=== PATIENT | female | born 1950 | race Caucasian/White ===

== ENCOUNTER → 2019-05-04 10:45 | Outpatient (CLI) | payer MEDICARE, SELFPAY ==
[2019-05-04 11:57] LABS: Absolute Lymphocyte Count 2.45 X10^3/ul (0.83-4.51); Absolute Neutrophil Count 2.8 X10^3/uL (2.0-7.7); Basophil# 0.02 X10^3/uL; Basophil% 0.3 % (0-1); Eosinophil# 0.58 X10^3/uL; Hematocrit 42.1 % (37-47); Hemoglobin 14.1 g/dl (12.0-15.0); Lymphocyte # 2.45 X10^3/ul (4.0); Lymphocyte % 38.2 % (19-41); Mean Corp Hgb Conc 33.5 g/gl (32-36); Mean Corpuscular Hgb 30.5 pg (27.0-32.0); Mean Corpuscular Volume 90.9 fL (81-99); Mean Platelet Vol. 10.8 fl (6.2-12.0); Monocyte# 0.56 X10^3/uL; Monocyte% 8.7 % (0-10); Neutrophil # 2.79 X10^3/uL (2.7-7.7); Neutrophil % 43.6 % (47-70); Platelet Count 266 K/mm3 (150-450); RBC Distribution Width CV 13.8 % (11.6-14.6); RBC Distribution Width SD 45.5 fl (35.1-43.9); Red Blood Count 4.63 M/mm3 (4.2-5.4); White Blood Count 6.4 K/mm3 (4.4-11.0)
[2019-05-04 12:04] LABS: POSITIVE COUNT NO; POSITIVE DIFFERENTIAL NO; POSITIVE MORPHOLOGY NO
[2019-05-04 12:18] LABS: Vitamin D,25 Hydroxy 16.6 ng/mL (29.95-100.01)
[2019-05-04 12:22] LABS: ALB/GLOB Ratio 0.8 RATIO (0.9-2.4); AST(SGOT) 14 U/L (15-37); Alanine Aminotransfer ALT/SGPT 21 U/L (13-56); Albumin, Serum 3.7 g/dL (3.2-5.0); Alkaline Phosphatase 66 U/L (45-117); Anion Gap 7 (5-15); BUN 10 mg/dL (7-18); BUN/Creat Ratio 14.1 RATIO (10-20); Chloride 107 mmol/L (98-107); Creatinine, Serum 0.71 mg/dL (0.55-1.02); EST Glomerular Filtration Rate 88 mL/min (>60); Est Glom Filt Rate - Afr Amer 106 mL/min (>60); Globulin 4.4 g/dL (2.2-4.2); Glucose 96 mg/dL (74-106); Potassium 3.9 mmol/L (3.5-5.1); Protein, Total 8.1 g/dL (6.4-8.2); Sodium Level 141 mmol/L (136-145); Thyroid Stim Hormone (TSH) 0.07 uIU/mL (0.358-3.74)
== END ==
PROVIDERS: Visit Provider Family Medicine Geriatric Medicine
DX: Z00.00 Encounter for general adult medical examination without abnormal findings (principal); E55.9 Vitamin D deficiency, unspecified; I10 Essential (primary) hypertension
CPT/HCPCS: 36415; 80053; 82306; 84443; 85025

== ENCOUNTER → 2019-06-03 11:00 | Outpatient (CLI) | payer MEDICARE, SELFPAY ==
[2019-06-03 13:27] LABS: Thyroid Stim Hormone (TSH) 0.49 uIU/mL (0.358-3.74)
== END ==
PROVIDERS: Visit Provider Family Medicine Geriatric Medicine
DX: E03.9 Hypothyroidism, unspecified (principal)
CPT/HCPCS: 36415; 84443

== ENCOUNTER → 2019-11-03 11:25 | Outpatient (CLI) | payer MEDICARE, SELFPAY ==
[2019-11-03 12:34] LABS: Absolute Lymphocyte Count 3.32 X10^3/uL (0.83-4.51); Absolute Neutrophil Count 2.7 X10^3/uL (2.0-7.7); Basophil# 0.05 X10^3/uL; Basophil% 0.7 % (0-1); Eosinophil# 0.26 X10^3/uL; Eosinophils% 3.8 % (0-5); Hematocrit 44.8 % (37-47); Hemoglobin 14.7 g/dL (12.0-15.0); Lymphocyte # 3.32 X10^3/ul (4.0); Lymphocyte % 48.9 % (19-41); Mean Corp Hgb Conc 32.8 g/dL (32-36); Mean Corpuscular Hgb 31.2 pg (27.0-32.0); Mean Corpuscular Volume 95.1 fL (81-99); Mean Platelet Vol. 11.1 fl (6.2-12.0); Monocyte# 0.48 X10^3/uL; Monocyte% 7.1 % (0-10); NRBC Flagged by Analyzer 0 % (0-5); Neutrophil # 2.67 X10^3/uL (2.7-7.7); Neutrophil % 39.4 % (47-70); Platelet Count 237 K/mm3 (150-450); RBC Distribution Width CV 12.5 % (11.6-14.6); RBC Distribution Width SD 44.5 fl (35.1-43.9); Red Blood Count 4.71 M/mm3 (4.2-5.4); White Blood Count 6.8 K/mm3 (4.4-11.0)
[2019-11-03 12:50] LABS: Vitamin D,25 Hydroxy 19.3 ng/mL (29.95-100.01)
[2019-11-03 12:53] LABS: AST(SGOT) 18 U/L (15-37); Alanine Aminotransfer ALT/SGPT 24 U/L (13-56); Albumin, Serum 3.8 g/dL (3.2-5.0); Alkaline Phosphatase 64 U/L (45-117); Anion Gap 5 (5-15); BUN 11 mg/dL (7-18); BUN/Creat Ratio 15.3 RATIO (10-20); Calcium,Total 8.7 mg/dL (8.5-10.1); Chloride 108 mmol/L (98-107); Creatinine, Serum 0.72 mg/dL (0.55-1.02); EST Glomerular Filtration Rate 86 mL/min (>60); Est Glom Filt Rate - Afr Amer 104 mL/min (>60); Glucose 99 mg/dL (74-106); Potassium 4.1 mmol/L (3.5-5.1); Protein, Total 7.8 g/dL (6.4-8.2); Sodium Level 137 mmol/L (136-145); Thyroid Stim Hormone (TSH) 1.93 uIU/mL (0.358-3.74)
== END ==
PROVIDERS: Visit Provider Family Medicine Geriatric Medicine
DX: E55.9 Vitamin D deficiency, unspecified (principal); R53.83 Other fatigue
CPT/HCPCS: 36415; 80053; 82306; 84443; 85025

== ENCOUNTER → 2020-05-22 11:13 | Outpatient (CLI) | payer MEDICARE, SELFPAY ==
[2020-05-22 12:33] LABS: Absolute Lymphocyte Count 3.11 X10^3/uL (0.83-4.51); Absolute Neutrophil Count 2.7 X10^3/uL (2.0-7.7); Basophil# 0.04 X10^3/uL; Basophil% 0.6 % (0-1); Eosinophil# 0.21 X10^3/uL; Eosinophils% 3.2 % (0-5); Hematocrit 40.3 % (37-47); Hemoglobin 13.3 g/dL (12.0-15.0); Lymphocyte # 3.11 X10^3/ul (4.0); Lymphocyte % 47.8 % (19-41); Mean Corpuscular Hgb 32.1 pg (27.0-32.0); Mean Corpuscular Volume 97.3 fL (81-99); Mean Platelet Vol. 10.7 fl (6.2-12.0); Monocyte# 0.44 X10^3/uL; Monocyte% 6.8 % (0-10); NRBC Flagged by Analyzer 0 % (0-5); Neutrophil # 2.68 X10^3/uL (2.7-7.7); Neutrophil % 41.3 % (47-70); Platelet Count 235 K/mm3 (150-450); RBC Distribution Width CV 12.5 % (11.6-14.6); RBC Distribution Width SD 44.8 fl (35.1-43.9); Red Blood Count 4.14 M/mm3 (4.2-5.4); White Blood Count 6.5 K/mm3 (4.4-11.0)
[2020-05-22 13:00] LABS: ALB/GLOB Ratio 0.9 RATIO (0.9-2.4); AST(SGOT) 15 U/L (15-37); Alanine Aminotransfer ALT/SGPT 27 U/L (13-56); Albumin, Serum 3.7 g/dL (3.2-5.0); Alkaline Phosphatase 58 U/L (45-117); Anion Gap 7 (5-15); BUN 11 mg/dL (7-18); BUN/Creat Ratio 17.3 RATIO (10-20); Calcium,Total 9.1 mg/dL (8.5-10.1); Chloride 105 mmol/L (98-107); Creatinine, Serum 0.64 mg/dL (0.55-1.02); EST Glomerular Filtration Rate 99 mL/min (>60); Est Glom Filt Rate - Afr Amer 120 mL/min (>60); Globulin 3.9 g/dL (2.2-4.2); Glucose 102 mg/dL (74-106); Potassium 4.3 mmol/L (3.5-5.1); Protein, Total 7.6 g/dL (6.4-8.2); Sodium Level 139 mmol/L (136-145); T3 Uptake 33 % (30-39); T4 Free Direct 1.03 ng/dL (0.76-1.46); Thyroid Stim Hormone (TSH) 2.24 uIU/mL (0.358-3.74)
== END ==
PROVIDERS: Referring Provider Family Medicine Geriatric Medicine; Visit Provider Family Medicine Geriatric Medicine
DX: E03.9 Hypothyroidism, unspecified (principal); E55.9 Vitamin D deficiency, unspecified; R53.83 Other fatigue
CPT/HCPCS: 36415; 80053; 82306; 84439; 84443; 84479; 85025

== ENCOUNTER → 2020-06-04 13:14 | Outpatient (CLI) | payer MEDICARE, SELFPAY ==
--- NOTE | 2020-06-04 13:19 | CT_ITS ---
STUDY: LOW DOSE CT LUNG CANCER SCREENING REASON FOR EXAM: Female, 69 years old. 37 pack-year history clearance for her. RADIATION DOSAGE (If Supplied By Facility): CTDIvol = ( 3.02 ) mGy, DLP = ( 102.69 ) mGycm TECHNIQUE: No contrast was administered. Low dose technique was utilized (average mAS-38 and kVp 120). 1.25 mm axial source images with a slice interval of 1.25-mm were reconstructed in lung windows. 2.5 mm axial source images with a slice interval of 2.5-mm were reconstructed in lung windows. 5.0 mm axial source images with a slice interval of 5.0-mm were reconstructed in soft tissue windows. Nodule measured using lung windows on PACS and/or independent workstation with automated measurement of minimum and maximum diameter. Nodule measurement reported as average diameter rounded to the nearest whole number. Growth is defined as an increase ins size of greater than 1.5 mm. COMPARISON: None. NODULES: Total lung nodules (excluding granulomas): 0 Emphysema: None there is evidence of an azygous lobe in the right lung apex. Endobronchial lesion: None Aorta: Normal Coronary arteries: Minimal coronary artery calcifications. Heart: Normal in size. Pulmonary artery: Normal Mediastinal nodes: There are calcified precarinal and right hilar lymph nodes. Other chest and abdominal findings: There are degenerative changes of the thoracic spine. CT/Low Dose CT Lung Screening IMPRESSION: Lung-RADS category 1 - Continue annual screening with LDCT in 12 months. IMPORTANT NOTES FOR USE: ACR Lung-RADS Version 1.0 Assessment Categories Release Date: March 27, 2014 Category: Coded 0-4 bases on nodule(s) with highest degree of suspicion. Negative screen is defined as categories 1 and 2; a positive screen is defined as categories 3 and 4. Category 3 and 4A nodules that are unchanged on interval CT should be coded as category 2, and individuals returned to screening in 12 months. Category 4X: Category 3 or 4 nodules with additional imaging findings that increase the suspicion of lung cancer, such as spiculation, GGN that doubles in size in 1 year, enlarged lymph notes, etc. Category Modifiers: S (significant finding unrelated to lung cancer) and C (prior history of treated lung cancer) may be added to the 0-4 Lung-RADS Electronically Signed: Bari Do DO at 21:47 EDT Tel [phone], Service support ,
== END ==
PROVIDERS: PCP Family Medicine Geriatric Medicine; Referring Provider Family Medicine Geriatric Medicine; Visit Provider Family Medicine Geriatric Medicine
DX: T65.222S Toxic effect of tobacco cigarettes, intentional self-harm, sequela (principal); Z12.2 Encounter for screening for malignant neoplasm of respiratory organs; Z87.891 Personal history of nicotine dependence
CPT/HCPCS: G0297

== ENCOUNTER → 2021-06-05 15:03 | Outpatient (CLI) | payer MEDICARE, SELFPAY ==
[2021-06-05 17:17] LABS: Absolute Lymphocyte Count 2.83 X10^3/uL (0.83-4.51); Absolute Neutrophil Count 2.5 X10^3/uL (2.0-7.7); Basophil# 0.05 X10^3/uL; Basophil% 0.8 % (0-1); Eosinophil# 0.29 X10^3/uL; Eosinophils% 4.7 % (0-5); Hematocrit 41.3 % (37-47); Hemoglobin 13.9 g/dL (12.0-15.0); Lymphocyte # 2.83 X10^3/ul (0.83-4.51); Lymphocyte % 45.9 % (19-41); Mean Corp Hgb Conc 33.7 g/dL (32-36); Mean Corpuscular Volume 95.2 fL (81-99); Monocyte# 0.48 X10^3/uL; Monocyte% 7.8 % (0-10); NRBC Flagged by Analyzer 0 % (0-5); Neutrophil % 40.5 % (47-70); Platelet Count 226 K/mm3 (150-450); RBC Distribution Width CV 12.4 % (11.6-14.6); RBC Distribution Width SD 43.2 fl (35.1-43.9); Red Blood Count 4.34 M/mm3 (4.2-5.4); White Blood Count 6.2 K/mm3 (4.4-11.0)
[2021-06-05 17:34] LABS: Vitamin D,25 Hydroxy 23.5 ng/mL
[2021-06-05 17:39] LABS: AST(SGOT) 21 U/L (15-37); Alanine Aminotransfer ALT/SGPT 26 U/L (13-56); Albumin, Serum 3.9 g/dL (3.2-5.0); Alkaline Phosphatase 62 U/L (45-117); Anion Gap 7 (5-15); BUN 13 mg/dL (7-18); BUN/Creat Ratio 17.2 RATIO (10-20); Calcium,Total 8.7 mg/dL (8.5-10.1); Chloride 107 mmol/L (98-107); Creatinine, Serum 0.76 mg/dL (0.55-1.02); EST Glomerular Filtration Rate 81 mL/min (>60); Est Glom Filt Rate - Afr Amer 97 mL/min (>60); Globulin 3.9 g/dL (2.2-4.2); Glucose 95 mg/dL (74-106); Protein, Total 7.8 g/dL (6.4-8.2); Sodium Level 138 mmol/L (136-145); Thyroid Stim Hormone (TSH) 4.59 uIU/mL (0.358-3.74)
== END ==
PROVIDERS: PCP Family Medicine Geriatric Medicine; Visit Provider Family Medicine Geriatric Medicine
DX: E55.9 Vitamin D deficiency, unspecified (principal); R53.83 Other fatigue
CPT/HCPCS: 36415; 80053; 82306; 84443; 85025

== ENCOUNTER 2021-12-09 09:35 | Outpatient (CLI) | payer MEDICARE, SELFPAY ==
[2021-12-09 11:41] LABS: Absolute Lymphocyte Count 3.06 X10^3/uL (0.83-4.51); Absolute Neutrophil Count 2.3 X10^3/uL (2.0-7.7); Basophil# 0.05 X10^3/uL; Basophil% 0.8 % (0-1); Eosinophil# 0.27 X10^3/uL; Eosinophils% 4.4 % (0-5); Hematocrit 44.2 % (37-47); Hemoglobin 15.2 g/dL (12.0-15.0); Lymphocyte # 3.06 X10^3/ul (0.83-4.51); Lymphocyte % 49.7 % (19-41); Mean Corp Hgb Conc 34.4 g/dL (32-36); Mean Corpuscular Hgb 32.4 pg (27.0-32.0); Mean Corpuscular Volume 94.2 fL (81-99); Mean Platelet Vol. 10.7 fl (6.2-12.0); Monocyte# 0.47 X10^3/uL; Monocyte% 7.6 % (0-10); NRBC Flagged by Analyzer 0 % (0-5); Neutrophil # 2.29 X10^3/uL (2.7-7.7); Neutrophil % 37.2 % (47-70); Platelet Count 254 K/mm3 (150-450); RBC Distribution Width CV 12.4 % (11.6-14.6); RBC Distribution Width SD 42.9 fl (35.1-43.9); Red Blood Count 4.69 M/mm3 (4.2-5.4); White Blood Count 6.2 K/mm3 (4.4-11.0)
[2021-12-09 12:13] LABS: ALB/GLOB Ratio 0.9 RATIO (0.9-2.4); AST(SGOT) 15 U/L (15-37); Alanine Aminotransfer ALT/SGPT 20 U/L (13-56); Albumin, Serum 3.8 g/dL (3.2-5.0); Alkaline Phosphatase 54 U/L (45-117); Anion Gap 5 (5-15); BUN 10 mg/dL (7-18); Calcium,Total 9.3 mg/dL (8.5-10.1); Chloride 106 mmol/L (98-107); Creatinine, Serum 0.84 mg/dL (0.55-1.02); EST Glomerular Filtration Rate 72 mL/min (>60); Est Glom Filt Rate - Afr Amer 87 mL/min (>60); Globulin 4.3 g/dL (2.2-4.2); Glucose 104 mg/dL (74-106); Potassium 3.8 mmol/L (3.5-5.1); Protein, Total 8.1 g/dL (6.4-8.2); Sodium Level 138 mmol/L (136-145); Thyroid Stim Hormone (TSH) 3.17 uIU/mL (0.358-3.74)
== END 2021-12-09 23:59 | disposition short-term general hospital (02) ==
LOC: POLAB3 09:36
PROVIDERS: PCP Family Medicine Geriatric Medicine; Visit Provider Family Medicine Geriatric Medicine
DX: E55.9 Vitamin D deficiency, unspecified (principal); R53.83 Other fatigue
CPT/HCPCS: 36415; 80053; 82306; 84443; 85025

== ENCOUNTER → 2022-05-01 | Outpatient (CLI) | payer MEDICARE, SELFPAY ==
--- NOTE | 2022-05-01 15:30 | RAD_ITS ---
STUDY: X-RAY - LEFT KNEE REASON FOR EXAM: Female, 71 years old. LEFT KNEE PAINS/P SQUATTING WHILE GARDENING ON THURSDAY, WHEN PATIENT STOOD UP FELT PAIN. LROM SINCE TECHNIQUE: 4 view(s) of the knee. COMPARISON: None. FINDINGS: Normal visualized distal femur. Normal visualized proximal tibia and fibula. Normal proximal tibiofibular articulation. Normal medial femorotibial compartment. Normal lateral femorotibial compartment. Normal patellofemoral articulation. There is no demonstrated joint effusion. The soft tissue structures are unremarkable. RAD/Knee 4 or More Views IMPRESSION: Normal x-ray examination of the knee. Electronically Signed: Marvin Combs MD (Brooks) at 17:44 EDT ,
== END | disposition home or self-care (01) ==
LOC: RAD 15:23
PROVIDERS: PCP Family Medicine Geriatric Medicine; Referring Provider Family Medicine Geriatric Medicine; Visit Provider Family Medicine Geriatric Medicine
DX: M25.562 Pain in left knee (principal)
CPT/HCPCS: 73564

== ENCOUNTER → 2022-06-09 | Outpatient (CLI) | payer MEDICARE, SELFPAY ==
[2022-06-09 12:26] LABS: Absolute Lymphocyte Count 2.75 X10^3/uL (0.83-4.51); Absolute Neutrophil Count 2.8 X10^3/uL (2.0-7.7); Basophil# 0.06 X10^3/uL; Eosinophil# 0.16 X10^3/uL; Eosinophils% 2.5 % (0-5); Hematocrit 42.8 % (37-47); Hemoglobin 14.6 g/dL (12.0-15.0); Lymphocyte # 2.75 X10^3/ul (0.83-4.51); Lymphocyte % 43.7 % (19-41); Mean Corp Hgb Conc 34.1 g/dL (32-36); Mean Corpuscular Volume 96.6 fL (81-99); Mean Platelet Vol. 11.1 fl (6.2-12.0); Monocyte# 0.53 X10^3/uL; Monocyte% 8.4 % (0-10); NRBC Flagged by Analyzer 0 % (0-5); Neutrophil # 2.79 X10^3/uL (2.7-7.7); Neutrophil % 44.2 % (47-70); Platelet Count 268 K/mm3 (150-450); RBC Distribution Width CV 12.8 % (11.6-14.6); RBC Distribution Width SD 45.9 fl (35.1-43.9); Red Blood Count 4.43 M/mm3 (4.2-5.4); White Blood Count 6.3 K/mm3 (4.4-11.0)
[2022-06-09 13:02] LABS: AST(SGOT) 16 U/L (15-37); Alanine Aminotransfer ALT/SGPT 25 U/L (13-56); Albumin, Serum 3.8 g/dL (3.2-5.0); Alkaline Phosphatase 56 U/L (45-117); Anion Gap 9 (5-15); BUN 13 mg/dL (7-18); BUN/Creat Ratio 19.2 RATIO (10-20); Calcium,Total 9.3 mg/dL (8.5-10.1); Chloride 105 mmol/L (98-107); Creatinine, Serum 0.68 mg/dL (0.55-1.02); EST Glomerular Filtration Rate 91 mL/min (>60); Est Glom Filt Rate - Afr Amer 111 mL/min (>60); Globulin 3.8 g/dL (2.2-4.2); Glucose 98 mg/dL (74-106); Potassium 3.9 mmol/L (3.5-5.1); Protein, Total 7.6 g/dL (6.4-8.2); Sodium Level 139 mmol/L (136-145); Thyroid Stim Hormone (TSH) 0.44 uIU/mL (0.358-3.74)
[2022-06-09 13:22] LABS: Vitamin D,25 Hydroxy 32.9 ng/mL
== END | disposition home or self-care (01) ==
LOC: POLAB3 10:49
PROVIDERS: PCP Family Medicine Geriatric Medicine; Visit Provider Family Medicine Geriatric Medicine
DX: E55.9 Vitamin D deficiency, unspecified (principal); R53.83 Other fatigue
CPT/HCPCS: 36415; 80053; 82306; 84443; 85025

== ENCOUNTER 2022-09-29 09:39 | Emergency (ER) | payer MEDICARE, SELFPAY ==
[2022-09-29 09:39] VITALS: BP 162/78; PULSE 66; RESP 16; TEMP 36.3; O2SAT 98; BMI 30.4
--- NOTE | 2022-09-29 10:14 | ED.VIS.LOWEX ---
HPI History of Present Illness Chief Complaint: Lower Extremity Injury Informant: patient Onset/Context/Timing Onset: Days (3) Context: Sudden Onset Timing: Continuous Quality of Pain: Aching Location: Medial right knee Current Severity: Moderate Maximum Severity: Severe Worsened by: Bending, walking Relieved by: Rest, remaining still Associated Symptoms Associated Symptoms: Negative for Parasthesia, Weakness or Loss of Funtion Narrative Narrative: Patient states she was having intercourse with her significant other and when she got off the bed and put her right foot down, she states her knees seem to either twist, give out, or both. She has been having medial knee joint pain ever since. She states she has chronic pain in her left knee, same area, was diagnosed with a meniscus tear, orthopedics has scheduled an MRI for her for that 1. 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 She denies any numbness or tingling distally. [facility] Medical History History of back problems Tear of medial meniscus of left knee Thyroid cancer Thyroid disease Home Medications atorvastatin 40 mg tablet (Lipitor) 40 mg PO DAILY 06/18/22 [History Last Taken Unknown] levothyroxine 125 mcg tablet 125 mcg PO DAILY 06/18/22 [History Last Taken Unknown] venlafaxine 37.5 mg capsule,extended release 24 hr (Effexor XR) 37.5 mg PO DAILY 06/18/22 [History Last Taken Unknown] ketorolac 10 mg tablet 10 mg PO Q8H PRN pain 4 days #12 tabs 09/29/22 [Rx Last Taken Unknown] Allergy/AdvReac Type Severity Reaction Status Date / Time Penicillins Allergy Rash Verified 06/26/22 14:17 keflex Allergy Yeast Uncoded 06/26/22 14:17 infection if on retirement Family History Father Cancer bladder Grandfather Cancer prostate Heart disease CVA (cerebral vascular accident) Grandmother Breast cancer Kidney disease Mother Colon cancer Surgical History History of back surgery History of cholecystectomy History of total thyroidectomy with right radical neck dissection Hx of tonsillectomy Social History Smoking Status: Current every day smoker tobacco type: cigarettes alcohol intake: current alcohol intake frequency: holidays/special occasions only details: seldom, social substance use type: does not use ROS ROS ED Constitutional Constitutional ED: Denies chills or fever(s) Musculoskeletal Musculoskeletal: Reports extremity pain; Denies neck pain Integumentary Denies Abrasions, rash or wounds Neurologic Neurologic: Denies paresthesias or weakness EXAM Physical Exam Const Vital Signs: 09/29/22 09:39 Temperature 97.3 F L Temperature Source Temporal Pulse Rate 66 Respiratory Rate 16 Blood Pressure 162/78 H Blood Pressure Mean 106 Pulse Ox 98 Oxygen Delivery Method Room Air Positive well nourished and well developed General Appearance ED: well developed and NAD Neck full ROM and supple Back/Spine normal ROM and normal to inspection Extremity Extremity Narrative: Tender right medial knee joint line, no effusion. No other bony tenderness. Full extension intact, able to bend to about 60 degrees but not fully due to pain. All ligaments stable with short endpoints, no laxity with stressing no significant discomfort with stressing them. Neuro oriented x3, no focal motor deficits and no sensory deficits noted Sensorium / Orientation: alert Psych mental status grossly normal and thought process normal Skin no wounds Rashes: no rashes MDM MDM MDM Narrative Medical decision making narrative: 4 view right knee x-ray series negative on my interpretation. Radiology in agreement. Meniscus injury in the differential here. Patient is concerned because of her chronic knee issues on the left and she is scheduled for an MRI in 1 week, and she really needs to work. I offered her a knee immobilizer for the right lower extremity which she accepts, and we discussed the fact that she needs to come out of it every day especially when she is resting so she avoids stiffening of the joint and muscles and venous thromboembolism risk. We also discussed using caution given that she is at an increased risk of falling. She wants this rather than an Jose Luis wrap, I am fine with that as long as she is cautious. Follow-up with orthopedics advised. So that she can work, she is requesting a prescription for Toradol which I will give her. Radiography Diagnostic Testing: Clinical Impression(s) from Imaging Studies Knee X-Ray 09/29/22 10:25 IMPRESSION: Normal x-ray examination of the knee. Electronically Signed: Taz Parra MD at 10:51 EDT , Discharge Plan Triage Chief Complaint: Lower Extremity Injury ED Provider: Gentry Kelley Dx/Rx/DC Orders Clinical Impression: Injury of right knee Instructions: Reducing Knee Pain and Swelling, ED Knee Immobilizer Prescriptions: New ketorolac 10 mg tablet 10 mg PO Q8H PRN (Reason: pain) 4 Days Qty: 12 0RF No Action levothyroxine 125 mcg tablet 125 mcg PO DAILY venlafaxine [Effexor XR] 37.5 mg capsule,extended release 24hr 37.5 mg PO DAILY atorvastatin [Lipitor] 40 mg tablet 40 mg PO DAILY Primary Care Provider: Shawn Andrade Chi Referrals: Jan Rosen MD [Med Staff - Active Staff] - As soon as possible Shawn Andrade Chi, MD [Primary Care Provider] - Disposition Disposition: Home, Self Care
--- NOTE | 2022-09-29 10:25 | RAD_ITS ---
STUDY: X-RAY - RIGHT KNEE REASON FOR EXAM: Female, 72 years old. Injury TECHNIQUE: 4 view(s) of the knee. COMPARISON: None. FINDINGS: Normal visualized distal femur. Normal visualized proximal tibia and fibula. Normal proximal tibiofibular articulation. Normal medial femorotibial compartment. Normal lateral femorotibial compartment. Normal patellofemoral articulation. The soft tissue structures are unremarkable. RAD/Knee 4 or More Views IMPRESSION: Normal x-ray examination of the knee. Electronically Signed: Taz Parra MD at 10:51 EDT ,
[2022-09-29] MEDS: traMADol 50 MG Tablet PO (11:36)
[2022-09-29] MEDS: Naproxen 250 MG Tablet 500 MG PO (11:36)
== END 2022-09-29 11:47 | disposition home or self-care (01) ==
PROVIDERS: Emergency Provider Emergency Medicine; PCP Family Medicine Geriatric Medicine; Visit Provider Emergency Medicine
DX: S90.912A Unspecified superficial injury of left ankle, initial encounter (principal); X58.XXXA Exposure to other specified factors, initial encounter; F17.210 Nicotine dependence, cigarettes, uncomplicated
CPT/HCPCS: 73564; 99283

== ENCOUNTER → 2022-10-06 | Outpatient (CLI) | payer MEDICARE, SELFPAY ==
--- NOTE | 2022-10-06 16:40 | MRI_ITS ---
STUDY: MR Knee W/O Contrast 10/06/2022 8:29 PM REASON FOR EXAM: Female, 72 years old. rule out MM tear TECHNIQUE: Standardized fat and water weighted pulse sequences were obtained in all 3 orthogonal planes. COMPARISON: xr 10.31.22. FINDINGS: There is a tear of the posterior horn of the medial meniscus with inferior surfacing. Normal hyaline cartilage of the medial femorotibial compartment. There is reactive marrow edema of the medial tibial plateau. Normal medial collateral ligamentous complex (MCL). Normal distal semimembranosus, gracilis and semitendinosus tendons. Normal lateral meniscus. Normal hyaline cartilage of the lateral femorotibial compartment. Normal lateral femoral condyle and tibial plateau. Normal proximal tibiofibular articulation. Normal lateral collateral (fibular) ligament. Normal popliteus tendon. Normal biceps femoris tendon. Normal anterior cruciate ligament (ACL). Normal posterior cruciate ligament (PCL). Normal congruent patellofemoral articulation. Normal hyaline cartilage of the patellofemoral compartment. Normal medial and lateral patellar retinaculum. Normal quadriceps tendon. Normal patellar tendon. Normal Hoffa''s fat pad. There is a small volume joint effusion. The soft tissues are unremarkable. The otherwise visualized osseous structures are unremarkable. MRI/Lower Ext Joint Only (Routine) IMPRESSION: Small suprapatellar effusion. There is a tear of the posterior horn of the medial meniscus with inferior surfacing. There is reactive marrow edema of the medial tibial plateau. Electronically Signed: Patel Szymanski MD at 20:44 EST ,
== END | disposition home or self-care (01) ==
LOC: MRI 16:23
PROVIDERS: PCP Family Medicine Geriatric Medicine; Referring Provider Orthopaedic Surgery Sports Medicine; Visit Provider Orthopaedic Surgery Sports Medicine
DX: S83.242A Other tear of medial meniscus, current injury, left knee, initial encounter (principal)
CPT/HCPCS: 73721

== ENCOUNTER → 2022-12-08 | Outpatient (CLI) | payer MEDICARE, SELFPAY ==
[2022-12-08 13:14] LABS: Absolute Lymphocyte Count 3.54 X10^3/uL (0.83-4.51); Basophil# 0.06 X10^3/uL; Basophil% 0.8 % (0-1); Eosinophil# 0.27 X10^3/uL; Eosinophils% 3.6 % (0-5); Hematocrit 40.8 % (37-47); Lymphocyte # 3.54 X10^3/ul (0.83-4.51); Lymphocyte % 47.1 % (19-41); Mean Corp Hgb Conc 34.3 g/dL (32-36); Mean Corpuscular Hgb 33.6 pg (27.0-32.0); Mean Corpuscular Volume 97.8 fL (81-99); Mean Platelet Vol. 10.8 fl (6.2-12.0); Monocyte# 0.66 X10^3/uL; Monocyte% 8.8 % (0-10); NRBC Flagged by Analyzer 0 % (0-5); Neutrophil # 2.97 X10^3/uL (2.7-7.7); Neutrophil % 39.6 % (47-70); Platelet Count 248 K/mm3 (150-450); RBC Distribution Width CV 13.2 % (11.6-14.6); RBC Distribution Width SD 47.8 fl (35.1-43.9); Red Blood Count 4.17 M/mm3 (4.2-5.4); White Blood Count 7.5 K/mm3 (4.4-11.0)
[2022-12-08 13:28] LABS: Vitamin D,25 Hydroxy 24.2 ng/mL
[2022-12-08 13:34] LABS: AST(SGOT) 20 U/L (15-37); Alanine Aminotransfer ALT/SGPT 37 U/L (13-56); Albumin, Serum 3.7 g/dL (3.2-5.0); Alkaline Phosphatase 49 U/L (45-117); Anion Gap 11 (5-15); BUN 18 mg/dL (7-18); BUN/Creat Ratio 23.2 RATIO (10-20); Calcium,Total 8.9 mg/dL (8.5-10.1); Chloride 105 mmol/L (98-107); Creatinine, Serum 0.78 mg/dL (0.55-1.02); EST Glomerular Filtration Rate 78 mL/min (>60); Est Glom Filt Rate - Afr Amer 94 mL/min (>60); Globulin 3.8 g/dL (2.2-4.2); Glucose 91 mg/dL (74-106); Potassium 3.9 mmol/L (3.5-5.1); Protein, Total 7.5 g/dL (6.4-8.2); Sodium Level 140 mmol/L (136-145)
== END | disposition home or self-care (01) ==
LOC: POLAB3 10:41
PROVIDERS: PCP Family Medicine Geriatric Medicine; Visit Provider Family Medicine Geriatric Medicine
DX: E55.9 Vitamin D deficiency, unspecified (principal); R53.83 Other fatigue
CPT/HCPCS: 36415; 80053; 82306; 84443; 85025

== ENCOUNTER → 2023-02-05 | Outpatient (CLI) | payer MEDICARE, SELFPAY ==
[2023-02-05 12:51] LABS: Absolute Lymphocyte Count 3.36 X10^3/uL (0.83-4.51); Absolute Neutrophil Count 2.8 X10^3/uL (2.0-7.7); Basophil# 0.04 X10^3/uL; Basophil% 0.6 % (0-1); Eosinophil# 0.15 X10^3/uL; Eosinophils% 2.1 % (0-5); Hematocrit 42.7 % (37-47); Hemoglobin 14.7 g/dL (12.0-15.0); Lymphocyte # 3.36 X10^3/ul (0.83-4.51); Lymphocyte % 48.1 % (19-41); Mean Corp Hgb Conc 34.4 g/dL (32-36); Mean Corpuscular Hgb 33.6 pg (27.0-32.0); Mean Corpuscular Volume 97.5 fL (81-99); Mean Platelet Vol. 10.7 fl (6.2-12.0); Monocyte# 0.57 X10^3/uL; Monocyte% 8.2 % (0-10); NRBC Flagged by Analyzer 0 % (0-5); Neutrophil # 2.84 X10^3/uL (2.7-7.7); Neutrophil % 40.7 % (47-70); Platelet Count 235 K/mm3 (150-450); RBC Distribution Width CV 11.9 % (11.6-14.6); RBC Distribution Width SD 42.7 fl (35.1-43.9); Red Blood Count 4.38 M/mm3 (4.2-5.4)
[2023-02-05 13:13] LABS: AST(SGOT) 19 U/L (15-37); Alanine Aminotransfer ALT/SGPT 27 U/L (13-56); Albumin, Serum 3.9 g/dL (3.2-5.0); Alkaline Phosphatase 52 U/L (45-117); Anion Gap 4 (5-15); BUN 19 mg/dL (7-18); BUN/Creat Ratio 27.8 RATIO (10-20); Calcium,Total 9.6 mg/dL (8.5-10.1); Chloride 108 mmol/L (98-107); Creatinine, Serum 0.68 mg/dL (0.55-1.02); EST Glomerular Filtration Rate 90 mL/min (>60); Est Glom Filt Rate - Afr Amer 109 mL/min (>60); Glucose 103 mg/dL (74-106); Potassium 4.3 mmol/L (3.5-5.1); Protein, Total 7.9 g/dL (6.4-8.2); Sodium Level 137 mmol/L (136-145); T3 Uptake 35 % (30-39); T4 Free Direct 0.98 ng/dL (0.76-1.46); Thyroid Stim Hormone (TSH) 9.63 uIU/mL (0.358-3.74)
== END | disposition home or self-care (01) ==
LOC: POLAB3 11:34
PROVIDERS: PCP Family Medicine Geriatric Medicine; Visit Provider Family Medicine Geriatric Medicine
DX: E03.9 Hypothyroidism, unspecified (principal); G93.40 Encephalopathy, unspecified
CPT/HCPCS: 36415; 80053; 84439; 84443; 84479; 85025

== ENCOUNTER 2023-03-04 05:56 | Day surgery (SDC) | payer MEDICARE, SELFPAY ==
[2023-03-04] VITALS (9 sets, daily range): BP systolic 101–129; BP diastolic 43–86; PULSE 52–70; RESP 12–16; TEMP 36.6–37; O2SAT 90–100; BMI 30.1
[2023-03-04] MEDS: Lactated Ringers 1,000 ML 15 ML IV (06:42)
--- NOTE | 2023-03-04 07:08 | PCM.HP.STD ---
HPI - General HPI Narrative GORDON NAYLOR, is a 72 F who presents for left knee scope, partial medial meniscectomy and debridement. no changes to h and p. Had a small benign appearing abraision anteromedial knee proximal to where the portals would be. OK to proceed, left knee marked. Recovery, RAB discussed and narcotic counselling. MR#: [id number] Acct: [id number] Name:? GORDON NAYLOR Rep #: [id number] : 1950 ? ? Provider: Dr. Jan Rosen MD Age/Sex:? 72/F ? ? [place] [facility] [place] Status: Signed Intake Intake Visit Reasons:?LEFT KNEE Chief Complaint: right knee Is patient in pain?: Yes Pain scale (1-10): 3 Allergies Penicillins Allergy (Verified 02/10/23 10:51) Rashkeflex Allergy (Uncoded 02/10/23 10:51) Yeast infection if on half-way Medications atorvastatin 40 mg tablet (Lipitor) 40 mg PO DAILY 06/18/22 [History Confirmed 02/10/23] venlafaxine 37.5 mg capsule,extended release 24 hr (Effexor XR) 37.5 mg PO DAILY 06/18/22 [History Confirmed 02/10/23] ketorolac 10 mg tablet 10 mg PO Q8H PRN pain 4 days #12 tabs 09/29/22 [Rx Confirmed 02/10/23] levothyroxine 125 mcg tablet 137 mcg PO DAILY 01/02/23 [History Confirmed 02/10/23] PFSH Medical History? History of back problems MCL sprain of right knee Osteoarthritis of left knee Strain of right knee Tear of medial meniscus of left knee Thyroid cancer Thyroid disease Surgical History? History of back surgery History of cholecystectomy History of total thyroidectomy with right radical neck dissection Hx of tonsillectomy Family History? Father Cancer ?? ? bladderGrandfather Cancer ?? ? prostate Heart disease CVA (cerebral vascular accident)Grandmother Breast cancer Kidney diseaseMother Colon cancer Social History?(Reviewed 02/10/23 @ 10:51 by Karlie Argueta Smoking Status:? Current every day smoker tobacco type: cigarettes alcohol intake:? current alcohol intake frequency: holidays/special occasions only details:? seldom, social substance use type:? does not use HPI LEFT KNEE Details: Parts of this documentation were recorded by a scribe, this documentation accurately reflects the service provided and the decisions made by me, Dr. Jan Rosen MD 02/10/23 1019. GORDON NAYLOR is a 72 year old F here today for? fu left knee pain with MM tear, mild arthrosis, and CLARK injections.? The injections were not very effective unfortunately.? The patient is still having medial joint line tenderness pain there and worse with twisting on the knee.? The other day the patient bumped the leg on a med cart really experience a lot of pain on the medial side. Ortho Exam General General: Yes no acute distress Neurologic: Yes alert and Yes oriented x3 Psychologic: Yes reasonable and appropriate Left Knee Skin/Wound: Yes CDI, No ecchymosis, No erythema and No swelling Knee ROM: Yes ROM-Flexion 0-140 Examination: Yes med jt line tenderness, No Lat jt line tenderness, No TTP inf pole patella, Yes Crepitus and Yes Pain with flexion KNEE: no pain below MJL, normal alignment. Supplemental Info [facility] Imaging Services [address] [place] [id number] Lower Ext Joint Only (Routine) MR#:? [id number] Acct: [id number] Name:? GORDON NAYLOR Rep #: [id number] :?? 1950 F 72 ? From:? ? Patel Szymanski MD PCP: Dr. Shawn Andrade MD ? Status: REG CLI Study: Lower Ext Joint Only (Routine) ? Date of Exam: 10/06/22 Exam# [id number] ? Ordering Dr:? Jan Rosen MD STUDY:? MR Knee W/O Contrast? 10/06/2022 8:29 PM REASON FOR EXAM:? Female, 72 years old.? rule out MM tear TECHNIQUE:? Standardized fat and water weighted pulse sequences were obtained in all 3 orthogonal planes. COMPARISON:? xr 09.29.22. FINDINGS: There is a tear of the posterior horn of the medial meniscus with inferior surfacing.? Normal hyaline cartilage of the medial femorotibial compartment.? There is reactive marrow edema of the medial tibial plateau. Normal medial collateral ligamentous complex (MCL).? Normal distal semimembranosus, gracilis and semitendinosus tendons. Normal lateral meniscus.? Normal hyaline cartilage of the lateral femorotibial compartment.? Normal lateral femoral condyle and tibial plateau. Normal proximal tibiofibular articulation.? Normal lateral collateral (fibular) ligament.? Normal popliteus tendon.? Normal biceps femoris tendon. Normal anterior cruciate ligament (ACL).? Normal posterior cruciate ligament (PCL). Normal congruent patellofemoral articulation.? Normal hyaline cartilage of the patellofemoral compartment.? Normal medial and lateral patellar retinaculum. Normal quadriceps tendon.? Normal patellar tendon.? Normal Hoffa''s fat pad. There is a small? volume? joint effusion. The soft tissues are unremarkable.? The otherwise visualized osseous structures are unremarkable. MRI/Lower Ext Joint Only (Routine) IMPRESSION: Small suprapatellar effusion. ? There is a tear of the posterior horn of the medial meniscus with inferior surfacing. ? There is reactive marrow edema of the medial tibial plateau. ? Electronically Signed: Patel Szymanski MD at 20:44 EST Reading Location ID and State: [facility] / [place] , Service support? , Coding Level of Care Code Off vis,est,level 4 Diagnoses Tear of medial meniscus of left knee? S83.242A Osteoarthritis of left knee? M17.12 Assessment and Plan Assessment and Plan (1) Tear of medial meniscus of left knee: ?Status:?Acute ?Plan: 72 yr old F with left knee?tear of the posterior horn of the medial meniscus with inferior surfacing, with mild OA including reactive marrow edema of the medial tibial plateau.? Options for the patient include continued conservative management rest ice anti-inflammatories offloading bracing injections physical therapy other forms of conservative management.? Knee surgery in the form of left knee arthroscopy, partial medial meniscectomy and debridement as another option.? Most the pain seems to be at the joint line.? There is no to subchondral insufficiency and there is mild marrow reactive edema could be a consideration for subchondroplasty although this seems to be very mild in nature.? There is reasonable joint space and early narrowing would not recommend proceeding directly to a total knee arthroplasty.? Patient wishes to proceed with minimally invasive left knee arthroscopy.? Patient is a smoker with thyroid problems this will increase her risk of complications including infection and I will ask Saniya in our office to obtain a preoperative clearance for the surgery. Pros and cons risks and benefits were discussed with the patient including but not limited to infection, pain, stiffness, bleeding, damage to surrounding structures, incr risk intermission coordinator OA,? neurovascular injury, recurrence or retear, failure or wear of hardware or fixation, instability, fracture, deep vein thrombosis and pulmonary embolism, anesthetic risks, , patient dissatisfaction, need for further surgery and other risks.? Patient understood and wished to proceed with surgery, and signed the informed consent documentation. [facility] Medical History (Updated 02/25/23 @ 14:32 by Soheila Cabral) Anxiety Arthritis Back pain Cancer Depression Easy bruising Gastric reflux Hepatitis History of pain when walking Loss of hearing MCL sprain of right knee Migraine headache Osteoarthritis of left knee Post-menopausal Smoker Strain of right knee Tear of medial meniscus of left knee Thyroid disease Wears glasses Home Medications atorvastatin 40 mg tablet (Lipitor) 40 mg PO DAILY 06/18/22 [History Last Taken Unknown] venlafaxine 37.5 mg capsule,extended release 24 hr (Effexor XR) 75 mg PO DAILY 06/18/22 [History Last Taken Unknown] levothyroxine 125 mcg tablet 150 mcg PO DAILY 01/02/23 [History Last Taken Unknown] Allergy/AdvReac Type Severity Reaction Status Date / Time Penicillins Allergy Rash Verified 02/25/23 14:18 keflex AdvReac Yeast Uncoded 02/25/23 14:18 infection if on intermission coordinator Family History Father Cancer bladder Grandfather Cancer prostate Heart disease CVA (cerebral vascular accident) Grandmother Breast cancer Kidney disease Mother Colon cancer Surgical History (Updated 02/25/23 @ 14:32 by Soheila Cabral) History of back surgery History of cholecystectomy History of total thyroidectomy with right radical neck dissection Hx of tonsillectomy Social History Smoking Status: Current every day smoker tobacco type: cigarettes alcohol intake: current alcohol intake frequency: holidays/special occasions only details: seldom, social substance use type: does not use Vital Signs Vital Signs Vital Signs: 03/04/23 06:37 03/04/23 06:44 Temperature 98.6 F Temperature Source Temporal Pulse Rate 63 Respiratory Rate 16 Respiratory Pattern Normal Blood Pressure 107/75 Blood Pressure Mean 85 Blood Pressure Source Monitor Blood Pressure Position Semi-Fowlers Blood Pressure Location Right Arm Pulse Ox 96 Oxygen Delivery Method Room Air Weight Weight: 154 lb 5.177 oz Body Mass Index (BMI) 30.1
[2023-03-04] MEDS: Epinephrine (1 mg/ml) 1 MG/ML VIAL (07:30)
[2023-03-04] MEDS: Clindamycin 900 MG/50 ML BAG 75 MG IV (07:43)
[2023-03-04] MEDS: Bupivacaine 0.25% 30 ML Vial (08:22)
--- NOTE | 2023-03-04 08:27 | DCINST_ITS ---
Discharge Instructions Diet Discharge Diet: No restrictions Activity Discharge Activity: Use Crutches Ice area for (Minutes): 10 Weight Bearing Status: Full weight bearing Additional Activity Instructions:: rom as tolerated, wbat Dressing / Incision Call your doctor if your incision/area has: Continuous Slow Oozing, Sudden Increased Bleeding, Increased Pain/ Swelling, Increased Redness, Foul Smelling Discharge and Swelling at the incision site Remove Dressing in: leave in place till F/U Follow Up Care Please Follow Up With: Jan Rosen MD When: 2 days Test Results: Test results from this visit will be discussed in further detail at your follow- up appointment, if applicable. Discharge Plan Admission Attending Provider: Jan Rosen Primary Care Provider: Shawn Andrade Chi Instructions Patient Instructions: After Knee Arthroscopy Discharge Orders/Prescriptions Prescriptions: New oxycodone-acetaminophen [Percocet] 5-325 mg tablet 1 tab PO Q6H MDD 6 PRN (Reason: pain) 5 Days Qty: 14 0RF No Action venlafaxine [Effexor XR] 37.5 mg capsule,extended release 24hr 75 mg PO DAILY atorvastatin [Lipitor] 40 mg tablet 40 mg PO DAILY levothyroxine 125 mcg tablet 150 mcg PO DAILY Referrals / Follow Up: Jan Rosen MD [Med Staff - Active Staff] - Shawn Andrade Chi, MD [Primary Care Provider] - Disposition Disposition (needs filled in before D/C Order can be placed): Home, Self Care
--- NOTE | 2023-03-04 08:38 | PCM.OPRPT ---
Problems Associated Problem List Diagnoses (1) Tear of medial meniscus of left knee: Report of Operation Date of Procedure: 03/04/23 Pre-Operative Diagnosis: Left knee medial meniscus tear and osteoarthritis Post-Operative Diagnosis: Left knee medial meniscus tear osteoarthritis and medial plica Surgery/Procedure Performed:: Left knee arthroscopy, partial medial meniscectomy debridement of plica and chondroplasty Surgeon: Jan Rosen Type of Anesthesia: General, Local and Spinal/Supplemental Anesthesiologist: Claudio Miranda Estimated Blood Loss (mL): 20cc Description of Procedure: Patient brought to the operating room theater. Placed supine on the operating room table. Spinal anesthetic was given prior to the start of the procedure however this was converted to general anesthetic 10 minutes into the procedure. Tourniquet applied to the left thigh appropriately padded with a stress positioner on that side. SCD on the nonoperative leg. IV clindamycin 900 mg administered prior to the start of the procedure for surgical prophylaxis due to allergy. Left lower extremity prepped and draped in the usual sterile fashion with chlorhexidine-based prep solution allowing over 3 minutes drying time prior to draping. Preoperative timeout performed to confirm the site the patient and the surgery. Began by elevating the limb inflating the tourniquet to 250 mmHg. Made standard anterolateral and anteromedial arthroscopy portals. Patellofemoral articular cartilage appeared normal although over some minor fraying of the distal pole the patella gently debrided. Medial lateral gutters entered no loose bodies. There is a large prominent medial sided plica that I debrided to stable margins. Cartilage on the lateral compartment was normal. Lateral meniscus stable and solid to probing appeared normal. I removed quite a thickened ligamentum mucosum as well as some mild synovitis at the anterior aspect of the knee. ACL and PCL appeared normal and stable to probing. Next entered the medial compartment. There is obvious prominent anterior one third flap radial tear. I used arthroscopy biting instruments to remove this to stable margins. Again there was intermargin fraying debrided this as well as ensuring that there were no flipped fragments below the joint line. Anterior and posterior roots appeared stable to the meniscus. He is shaving instrument. There is an area along the anterior aspect of the medial tibial plateau approximately 1 cm x 2 cm full-thickness cartilage loss as well as similar grade 2-3 changes at the distal femur medial side articular surface. Medial meniscus stable to probing afterwards. Arthroscopy pictures taken and saved onto the system throughout the case. Knee thoroughly irrigated. Case terminated arthroscope removed. Tourniquet let down. 5 cc of quarter percent bupivacaine instilled in and around the portal sites. Skin cleaned with wet and dry dressing followed application of Steri-Strips adaptic 4 x 4 gauze ABD dressing and loosely wrap 6 inch sterile Jose Luis bandage. Patient woken up from their anesthetic transferred off the operating room table and taken to postanesthetic care unit in stable condition. All sponge needle instrument counts were correct no complications. Plan to the patient weightbearing as tolerated gentle range of motion on crutches and follow-up in the office in 2 days time. Complications none Admit VTE Documentation VTE Present on Admission: No VTE Mechan Device Prophylaxis: SCD's Reason prophylaxis not ordered:: Treatment Not Indicated Procedures Musculoskeletal [id number]: Other Procedure See Report
[2023-03-04] MEDS: HYDROcodone Bitartrate/Apap 5/325 Tablet PO (10:00)
== END 2023-03-04 14:03 | disposition home or self-care (01) ==
LOC: SDC 06:02 → AC 06:03
PROVIDERS: PCP Family Medicine Geriatric Medicine; Referring Provider Orthopaedic Surgery Sports Medicine; Visit Provider Orthopaedic Surgery Sports Medicine
PROC: (CPT 29870; principal; 2023-03-04 07:10)
DX: S83.242A Other tear of medial meniscus, current injury, left knee, initial encounter (principal); M17.12 Unilateral primary osteoarthritis, left knee; E07.9 Disorder of thyroid, unspecified; F17.210 Nicotine dependence, cigarettes, uncomplicated; F41.9 Anxiety disorder, unspecified; F32.A Depression, unspecified; K21.9 Gastro-esophageal reflux disease without esophagitis; Z79.899 Other long term (current) drug therapy; X58.XXXA Exposure to other specified factors, initial encounter
CPT/HCPCS: 29881; 01400; J7120; J2405

== ENCOUNTER → 2023-04-02 | Outpatient (CLI) | payer MEDICARE, SELFPAY ==
--- NOTE | 2023-04-02 | SKTAG_PTH ---
PATIENT: GORDON NAYLOR [facility] U#:[id number] AGE/SX: 72/F ROOM: RE04/02/[address]: Dr. Salena Jones DO : 1950 BED: DIS: 04/02/2023 SPEC #: [id number] RECD: 04/02/23 13:14 STATUS: CATE PAVEL #: [id number] CHAZ: 04/02/23 00:[address]: Salena Jones DEPT: SURGICAL PATHOLOGY RECD BY: Diandra Herrera ENTERED: 04/03/23 12:27 SP TYPE: SKIN TAG ALBA DR: Dr. Shawn Andrade MD Tissues: A - Skin appendage, NOS B - Skin appendage, NOS Procedures: Surgery Specimen Level IV HEADER OPERATION: Skin tag removal PRE-OP DIAGNOSIS: Skin tags TISSUE SUBMITTED: A ? Skin tag upper left labia, B ? Skin tag perineum body MICROSCOPIC DIAGNOSIS A. Skin tag, left upper labia, biopsy: Polypoid intradermal nevus. Epidermal inclusion cyst. B. Skin tag of perineum, excision: Polypoid condyloma acuminata. AM:cait 04/06/2023 COMMENT Case has been reviewed in consultation with Dr. Giraldo who concurs with the above diagnosis. ANUSHA:FELICIA MICROSCOPIC DESCRIPTION Slides are reviewed. GROSS DESCRIPTION A - Received in fixative is one container labeled with the patient's name and designated upper left labia. The specimen consists of a piece of joiner-white skin measuring 0.6 x 0.4 x 0.3 cm. The specimen is inked, bisected and submitted entirely in one cassette. B - Received in fixative is one container labeled with the patient's name and designated perineum body. The specimen consists of a polypoid piece of joiner-white skin measuring 0.6 x 0.6 x 0.3 cm. The specimen is inked, bisected and submitted entirely in one cassette. / FELICIA:cait 04/03/2023 TC:5 CPT: 38168 x2
== END | disposition home or self-care (01) ==
LOC: LABSPEC 13:19
PROVIDERS: PCP Family Medicine Geriatric Medicine; Referring Provider Obstetrics & Gynecology; Visit Provider Obstetrics & Gynecology
DX: D28.0 Benign neoplasm of vulva (principal); L72.0 Epidermal cyst; A63.0 Anogenital (venereal) warts
CPT/HCPCS: 88304; 88305

== ENCOUNTER 2023-04-09 13:30 | Outpatient (RCR) | payer MEDICARE, SELFPAY ==
--- NOTE | 2023-03-16 16:14 | HP.PTEVAL_ITS ---
Patient's Visit Information GORDON NAYLOR is a 72 year old F referred to Physical Therapy by Dr. Jan Rosen MD with a diagnosis of Left Knee Scope. Date of Evaluation: 03/16/23 Physical Therapist: Mari Gerardo DPT - Visit Plan Frequency: 2-3x /Week Duration: 4 Weeks Plan: DSA Left Knee 03/04/23: Focus on LE and core strength/stabilization and functional mobility- WBAT gentle progression due to pain. HEP Given IE: SLS, HR/TR, Single Crutch Ambulation, Heel Slide, Quad Set, SLR - Subjective Patient reports that she left knee scope on 03/04/[address] Rosen- she went home after surgery. He went in and cleaned it out and its been very painful. She has been doing pretty good but the pills he put her on the first night was really rough and the next day. She still having pain in the medial side of the knee. She does have pain that radiates into the anterior thigh and into the ankle but that just is mostly gone now. Now mostly just in the middle of the knee. Worst: 6/10 Agg: twisting it, bending it. Eases: resting, ice Best: 2/10 Reports the pain is dull and achy. No N/T in the toes. Sleep: not disturbed- she is sleeping in her bed with a pillow between her knees- but she has too much pain to be on her left side. 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 She is using crutches only when she goes out or when she feels like its too much. She has stairs in her home- she does not go to the basement but she does have a step into the house from the garage with a railing. PMHx/Meds: no changes since saw ortho. - Objective Posture: FH, RS- can correct but does not maintain. Gait: antalgic- decreased stance on the left LE with poor heel/toe pattern with bilaterally axillary crutches HR/TR: with UE A SLS: weight shift but unable to SLS due to balance deficit Observation: incision healing well no s/s of infection. ROM: 10-95 Strength: Knee: Flexion: 4/5 Extn: 4/5 Ankle: 4+/5. Flex: HS: severe, Solues: severe. Hamstring: severe Sensation: WNL to gross touch. Palpation: tender along medial and lateral joint line Girth: Patella: 39.5 cm 6: above: 59.5 cm. Stairs: non recip with 2 HR - Balance/Special Test Scores Lower Extremity Functional Score: 18 - Goals Goal 1:: Patient will be I with HEP and progression Goal Time Frame: 4-6 Weeks Goal 2:: Patient will asc/desc 8 recip with 1 HR Goal Time Frame: 4-6 Weeks Goal 3:: Patient will be able ambulate >300 feet with a normalized gait pattern with no AD Goal Time Frame: 4-6 Weeks Goal 4:: Patient will report 80% improvement Goal Time Frame: 4-6 Weeks - Rehabilitation Potential Physical Therapy Diagnosis: Patient presents with hypomobility s/p left meniscectomy- she has decreased LE and core strength/stabilization, ROM, flex, proprioception and muscular endurance leading to abnormal gait and decreased participation in ADL's. Rehabilitation Potential: Good - Anticipated Interventions Patient/Client Instruction: Educate patient on: Benefits of Fitness Program Therapeutic Exercise to Include: Strength training, Endurance training, Balance training, Agility training, Body mechanics, Postural training, Flexibilty training, Gait and locomotor training, Neuromotor development, Passive ROM, Active ROM, Dynamic Lumbar Stabilization, Scapular Strength/Stabilization For the Purpose of:: To improve muscle performance and motor function TENS: Yes Cryotherapy (ice pack, ice massage): Yes Thermo therapy (hot pack): Yes Ultrasound (thermal/non thermal): Yes Thank you for the opportunity to evaluate your patient. For Medicare and Medicare HMO plans, please review the plan of care and approve it. It will need to be FAXED BACK to us at [phone] for Medicare purposes. For Medicare only, by signing this I certify the plan of care. Please let me know if there are questions or concerns regarding this plan of care. Physician Signature: Date:
--- NOTE | 2023-06-15 12:34 | HP.PT.NRP ---
Patient Information Patient Information: GORDON NAYLOR was seen in my office for initial evaluation on 03/16/23. The following Plan of Care was established for this patient: POC Established Initial Frequency: 2-3x /Week Initial Duration: 4 Weeks Anticipated Interventions Patient/Client Instruction: Educate patient on: Benefits of Fitness Program Therapeutic Exercise to Include: Strength training, Endurance training, Balance training, Agility training, Body mechanics, Postural training, Flexibilty training, Gait and locomotor training, Neuromotor development, Passive ROM, Active ROM, Dynamic Lumbar Stabilization and Scapular Strength/Stabilization For the Purpose of:: To improve muscle performance and motor function TENS: Yes Cryotherapy (ice pack, ice massage): Yes Thermo therapy (hot pack): Yes Ultrasound (thermal/non thermal): Yes Last Seen Last Seen: This patient was last seen in our office . Pertinent comments regarding their Physical therapy will appear below: Pt has not attended PT in over 8 weeks- appropriate to be d/c from PT At this point I will be discontinuing this patient from physical therapy. I would be happy to see this patient again in the future if found appropriate by the physician. Thank you! Mari Gerardo, CHANI Balance/Gait/Functional tests Balance/Special Test Scores Lower Extremity Functional Score: 18
== END 2023-04-09 19:00 | disposition home or self-care (01) ==
LOC: PT 13:30
PROVIDERS: PCP Family Medicine Geriatric Medicine; Referring Provider Orthopaedic Surgery Sports Medicine; Visit Provider Orthopaedic Surgery Sports Medicine
DX: S83.242D Other tear of medial meniscus, current injury, left knee, subsequent encounter (principal)
CPT/HCPCS: 97110; 97162

== ENCOUNTER → 2023-06-16 | Outpatient (CLI) | payer MEDICARE, SELFPAY ==
[2023-06-16 13:04] LABS: Absolute Lymphocyte Count 2.92 X10^3/uL (0.83-4.51); Absolute Neutrophil Count 2.8 X10^3/uL (2.0-7.7); Basophil# 0.05 X10^3/uL; Basophil% 0.8 % (0-1); Eosinophil# 0.25 X10^3/uL; Eosinophils% 3.8 % (0-5); Hematocrit 43.6 % (37-47); Hemoglobin 14.5 g/dL (12.0-15.0); Lymphocyte # 2.92 X10^3/ul (0.83-4.51); Lymphocyte % 43.9 % (19-41); Mean Corp Hgb Conc 33.3 g/dL (32-36); Mean Corpuscular Hgb 32.4 pg (27.0-32.0); Mean Corpuscular Volume 97.5 fL (81-99); Mean Platelet Vol. 11.5 fl (6.2-12.0); Monocyte# 0.63 X10^3/uL; Monocyte% 9.5 % (0-10); NRBC Flagged by Analyzer 0 % (0-5); Neutrophil # 2.79 X10^3/uL (2.7-7.7); Neutrophil % 41.8 % (47-70); Platelet Count 233 K/mm3 (150-450); RBC Distribution Width CV 12.2 % (11.6-14.6); RBC Distribution Width SD 44.3 fl (35.1-43.9); Red Blood Count 4.47 M/mm3 (4.2-5.4); White Blood Count 6.7 K/mm3 (4.4-11.0)
[2023-06-16 13:30] LABS: ALB/GLOB Ratio 0.9 RATIO (0.9-2.4); AST(SGOT) 18 U/L (15-37); Alanine Aminotransfer ALT/SGPT 21 U/L (13-56); Albumin, Serum 3.7 g/dL (3.2-5.0); Alkaline Phosphatase 71 U/L (45-117); Anion Gap 5 (5-15); BUN 12 mg/dL (7-18); BUN/Creat Ratio 16.8 RATIO (10-20); Calcium,Total 9.2 mg/dL (8.5-10.1); Chloride 107 mmol/L (98-107); Creatinine, Serum 0.72 mg/dL (0.55-1.02); EST Glomerular Filtration Rate 86 mL/min (>60); Est Glom Filt Rate - Afr Amer 103 mL/min (>60); Globulin 3.9 g/dL (2.2-4.2); Glucose 92 mg/dL (74-106); Potassium 4.4 mmol/L (3.5-5.1); Protein, Total 7.6 g/dL (6.4-8.2); Sodium Level 137 mmol/L (136-145); Thyroid Stim Hormone (TSH) 2.05 uIU/mL (0.358-3.74)
[2023-06-16 13:57] LABS: Hepatitis C Antibody REACTIVE (Nonreactive)
== END | disposition home or self-care (01) ==
LOC: POLAB3 10:19
PROVIDERS: PCP Family Medicine Geriatric Medicine; Visit Provider Family Medicine Geriatric Medicine
DX: E55.9 Vitamin D deficiency, unspecified (principal); R53.83 Other fatigue
CPT/HCPCS: 36415; 80053; 82306; 84443; 85025; 86803

== ENCOUNTER → 2023-06-19 | Outpatient (CLI) | payer MEDICARE, SELFPAY ==
[2023-06-20 20:10] LABS: HCV Quant. RNA PCR HCV Not Detected IU/mL (.)
== END | disposition home or self-care (01) ==
PROVIDERS: PCP Family Medicine Geriatric Medicine; Referring Provider Family Medicine Geriatric Medicine; Visit Provider Family Medicine Geriatric Medicine
DX: B19.20 Unspecified viral hepatitis C without hepatic coma (principal)
CPT/HCPCS: 36415; 87522

== ENCOUNTER → 2023-06-30 | Outpatient (CLI) | payer MEDICARE, SELFPAY ==
--- NOTE | 2023-06-30 13:45 | CT_ITS ---
EXAM: CT CHEST, LUNG CANCER SCREENING WITHOUT INTRAVENOUS CONTRAST CLINICAL INDICATION: TOXIC EFFECT OF TOBACCO TECHNIQUE: Helically acquired images were obtained of the chest without intravenous contrast using low dose (LDCT) lung cancer screening protocol. This CT exam was performed using one or more of the following dose reduction techniques: automated exposure control, adjustment of the mA and/or kV according to patient size, and/or use of iterative reconstruction technique. COMPARISON: 06/04/2020 FINDINGS: LUNGS AND PLEURAL SPACES: Unremarkable. No mass. No consolidation or edema. No pleural effusion or thickening. No pneumothorax. HEART: Unremarkable. Heart size is normal. No pericardial effusion. No significant coronary artery calcifications. MEDIASTINUM: Unremarkable. No mediastinal or hilar adenopathy. Esophagus is unremarkable. No hiatal hernia. THYROID: Unremarkable. No thyroid lesions. BONES/JOINTS: Unremarkable. No suspicious lytic or blastic abnormality. VASCULATURE: Unremarkable. Thoracic aorta is non-dilated. LYMPH NODES: Unremarkable. No enlarged lymph nodes. CT/Low Dose CT Lung Screening IMPRESSION: Normal chest CT. Lung-RADS score: 1 - Negative. Recommend continued annual screening with a low-dose CT (LDCT) in 12 months. Electronically Signed: Sergio Mensah MD at 23:56 EDT ,
== END | disposition home or self-care (01) ==
LOC: CT 13:44
PROVIDERS: PCP Family Medicine Geriatric Medicine; Referring Provider Family Medicine Geriatric Medicine; Visit Provider Family Medicine Geriatric Medicine
DX: Z12.2 Encounter for screening for malignant neoplasm of respiratory organs (principal); T65.222S Toxic effect of tobacco cigarettes, intentional self-harm, sequela; Z87.891 Personal history of nicotine dependence
CPT/HCPCS: 71271

== ENCOUNTER 2023-11-29 03:59 | Emergency (ER) | payer MEDICARE, SELFPAY ==
[2023-11-29 04:01] VITALS: BP 144/71; PULSE 66; RESP 16; TEMP 35.8; O2SAT 97; BMI 32.4
[2023-11-29 04:04] VITALS: BP 144/71; PULSE 66; RESP 16; TEMP 35.8; O2SAT 97
--- NOTE | 2023-11-29 04:08 | EX.ED.DYSGE1 ---
HPI History of Present Illness Chief Complaint: Lower Extremity Injury PFSH PFSH Medical History Anxiety Arthritis Back pain Cancer Depression Easy bruising Gastric reflux Hepatitis History of pain when walking Loss of hearing MCL sprain of right knee Migraine headache Osteoarthritis of left knee Post-menopausal Smoker Strain of right knee Tear of medial meniscus of left knee Thyroid disease Wears glasses Home Medications atorvastatin 40 mg tablet (Lipitor) 40 mg PO DAILY 06/18/22 [History Last Taken Unknown] venlafaxine 37.5 mg capsule,extended release 24 hr (Effexor XR) 75 mg PO DAILY 06/18/22 [History Last Taken Unknown] levothyroxine 125 mcg tablet 150 mcg PO DAILY 01/02/23 [History Last Taken Unknown] acetaminophen 650 mg tablet,extended release (Tylenol Arthritis Pain) 650 mg PO Q8H 04/14/23 [History Last Taken Unknown] Allergy/AdvReac Type Severity Reaction Status Date / Time Penicillins Allergy Rash Verified 11/29/23 04:00 cephalexin [From Keflex] AdvReac Other Verified 11/29/23 04:00 Family History Father Cancer bladder Grandfather Cancer prostate Heart disease CVA (cerebral vascular accident) Grandmother Breast cancer Kidney disease Mother Colon cancer Surgical History History of back surgery History of cholecystectomy History of total thyroidectomy with right radical neck dissection Hx of tonsillectomy Social History Smoking Status: Current every day smoker tobacco type: cigarettes alcohol intake: current alcohol intake frequency: holidays/special occasions only details: seldom, social substance use type: does not use caffeine: Yes what type of physical activity do you participate in: none do you feel safe at home: Yes additional social history: Retired nurse EXAM Physical Exam Const Vital Signs: 11/29/23 04:01 11/29/23 04:04 Temperature 96.5 F L 96.5 F L Temperature Source Temporal Temporal Pulse Rate 66 66 Respiratory Rate 16 16 Blood Pressure 144/71 H 144/71 H Blood Pressure Mean 95 95 Pulse Ox 97 97 Oxygen Delivery Method Room Air Room Air MDM MDM MDM Narrative Medical decision making narrative: HISTORY OF PRESENT ILLNESS: 73-year-old female here with right knee pain. REVIEW OF SYSTEMS: Pertinent positives: Right knee pain Pertinent negatives: Fever, swelling, falls, loss of sensation or weakness or numbness. PHYSICAL EXAM: Nursing triage notes reviewed, Vital signs reviewed Constitutional: please see [facility] HENT: MMM Eyes: Pupils equal round and reactive to light, Extraocular muscles intact Neck: No stridor, no JVD, full neck ROM Lungs: Clear to auscultation, No wheezing or rales. No increased work of breathing, no conversational dyspnea, no accessory muscle use, no nasal flaring. No respiratory distress noted Heart: Regular rate and rhythm, No murmurs, No rubs and No gallops, 2+ distal pulses (radial, femoral, posterior tibial) in all extremities Abdomen: Soft, there is no tenderness, rigidity, rebound or guarding, no obvious peritoneal signs, no palpable pulsatile abdominal masses, no auscultated abdominal bruit : No CVAT Extremities: No edema, TTP over right distal quadriceps muscle. Neuro: No focal neurological deficits, cranial nerves II through XII intact, 5/5 strength in all extremities. Intact sensation to light touch in all extremities, 2+ reflexes bilateral patella tendons. Normal gait. No ataxia. Skin: No rash or lesions noted MEDICAL DECISION MAKING: Chief Complaint: Knee pain External records reviewed: MRI of the lower extremity from 2021 shows small prepatellar effusion, tear of the medial meniscus posterior horn Factors affecting care: Right medial meniscus tear [facility] Narrative: Patient was hemodynamically stable, afebrile, nontoxic-appearing. I considered the following differential diagnosis: Knee sprain, fracture dislocation, patellar dislocation, quad tendon rupture, ligamentous injury, septic arthritis Patient good joint range of motion. Intact partial tendon complex. Patella was within normal anatomic alignment. There is no trauma to suggest fracture dislocation. ALL IMAGES (IF OBTAINED) HAVE BEEN PERSONALLY REVIEWED AND INTERPRETED BY MYSELF. X-ray of the patient's right knee shows no evidence of obvious fracture dislocation patella dislocation. X-ray was read reviewed by myself. Awaiting radiologist read. Radiologist agrees my interpretation. The synthesis of the patient history, physical exam and imaging studies suggest no acute life-limiting pathology. I have a low suspicion clinically and historically for DVT, arterial occlusion, quadriceps tendon rupture, septic arthritis. Suspect the patient's abnormal quadriceps muscle strain. The patient and/or family, caregivers express understanding. The patient and/or family, caregivers agrees with the plan. Shared decision making: I will have a discussion with the patient and or visitors regarding risk/benefits of further testing or admission. They will be made aware of of the risk/benefits inherent in this decision they will be given the opportunity to voice understanding. Total critical care time today provided was at least 0 minutes. This excludes separately billable procedures. Critical care time (if documented) is secondary to the patient having high probability of clinically significant/life threatening deterioration in the patient's condition which required my urgent intervention. Impression: 1. Atraumatic right knee pain Dispo: Discharge Radiography Diagnostic Testing: Clinical Impression(s) from Imaging Studies Knee X-Ray 11/29/23 04:47 IMPRESSION: No fracture or dislocation. Electronically Signed: Morgan Casas MD at 6:24 EST Reading Location ID and State: [facility] / [place] Tel , Service support , Discharge Plan Triage Chief Complaint: Lower Extremity Injury ED Provider: Jeremy Magdaleno Dx/Rx/DC Orders Clinical Impression: Strain of right knee Instructions: ED Knee Sprain Prescriptions: No Action venlafaxine [Effexor XR] 37.5 mg capsule,extended release 24hr 75 mg PO DAILY atorvastatin [Lipitor] 40 mg tablet 40 mg PO DAILY levothyroxine 125 mcg tablet 150 mcg PO DAILY acetaminophen [Tylenol Arthritis Pain] 650 mg tablet extended release 650 mg PO Q8H Stand Alone Forms: ED Work / School Excuse Primary Care Provider: Shawn Andrade Chi Referrals: Shawn Andrade Chi, MD [Primary Care Provider] - Activity Restrictions/Additional Instructions: Thank you for trusting us with your care today! The x-ray of your right knee was negative for acute bony abnormality such as fractures, breaks, dislocations etc. Please take Tylenol (2 pills, 650 mg), ibuprofen (2 pills, 400 mg) every 6 hours as needed for pain and fever control. Please take prednisone for the next 5 days. Please stay off our knee. Please return to the emergency department if your symptoms change or worsen. Please follow with your primary care physician for further outpatient evaluation and management. Disposition Disposition: Home, Self Care
--- NOTE | 2023-11-29 04:47 | RAD_ITS ---
STUDY: X-RAY - RIGHT KNEE REASON FOR EXAM: Female, 73 years old. Pain. TECHNIQUE: 3 view(s) of the knee. COMPARISON: None. FINDINGS: There is no evidence of fracture or dislocation. There are no significant degenerative changes. There are no radiodense foreign bodies. RAD/Knee 3 Views IMPRESSION: No fracture or dislocation. Electronically Signed: Morgan Casas MD at 6:24 EST ,
[2023-11-29] MEDS: Ibuprofen 200 MG Tablet 400 MG PO (04:56)
[2023-11-29] MEDS: predniSONE 20 MG Tablet 40 MG PO (04:56)
[2023-11-29] MEDS: Acetaminophen 325 MG Tablet 650 MG PO (04:57)
== END 2023-11-29 06:52 | disposition home or self-care (01) ==
PROVIDERS: Emergency Provider Emergency Medicine; PCP Family Medicine Geriatric Medicine; Visit Provider Emergency Medicine
DX: M25.561 Pain in right knee (principal); F17.210 Nicotine dependence, cigarettes, uncomplicated; Z79.899 Other long term (current) drug therapy; F41.9 Anxiety disorder, unspecified; F32.A Depression, unspecified
CPT/HCPCS: 73562; 99283

== ENCOUNTER → 2023-12-14 | Outpatient (CLI) | payer MEDICARE, SELFPAY ==
--- NOTE | 2023-12-14 10:18 | MRI_ITS ---
INDICATION: right lumbar radiculopathy -- 10 yrs ago spine surgery EXAMINATION: MRI - MR Spine Lumbar W/O Contrast TECHNIQUE: Multiplanar and multisequence MR images of the lumbar spine. IV Contrast Dosage and Agent: None. COMPARISON: Lumbar spine radiographs dated 12/10/2023 FINDINGS: Posterior spinal fusion consisting of left paraspinal rods and transpedicular screws at L4-5, and a right paraspinal payton and transpedicular screws at L5-S1, with interbody cage at L4-5. Posterior laminectomy at S1. VERTEBRAE: Vertebral body heights are preserved. Normal vertebral bodies and posterior elements. VERTEBRAL ALIGNMENT: No spondylolisthesis. There is preservation of the normal lumbar lordosis. CORD: Normal position and signal intensity of the conus medullaris. L1/L2: There is loss of disc space height associated with a diffuse disc bulge. Mild facet arthropathy and ligamentum flavum hypertrophy. No significant central canal stenosis or foraminal narrowing. L2/L3: Slight retrolisthesis of L2 over L3 combines with facet arthropathy and ligamentum flavum hypertrophy lead to mild bilateral neural foraminal narrowing. No significant central canal stenosis. L3/L4: Small left subarticular/foraminal focal protrusion. In conjunction with facet arthropathy and ligamentum flavum hypertrophy, this leads to mild left neural foraminal narrowing. No significant foraminal narrowing on the right. Moderate central canal stenosis. L4/L5: Interbody cage. No evidence of hardware failure or complication. No significant central canal stenosis or foraminal narrowing. L5/S1: Slight anterolisthesis of L5 over S1 and minimal broad-based posterior disc protrusion. In conjunction with facet arthropathy, this leads to mild bilateral foraminal narrowing. No significant central canal stenosis. SOFT TISSUES: Unremarkable. MRI/Spine Lumbar (Routine) IMPRESSION: Posterior spinal fusion from L4-S1 as described. No evidence of hardware failure or complication. Multilevel lumbar spondylosis as described. Electronically Signed: Sunny Ramos MD at 15:39 EST ,
== END | disposition home or self-care (01) ==
LOC: MRI 10:41
PROVIDERS: PCP Family Medicine Geriatric Medicine; Visit Provider Orthopaedic Surgery Sports Medicine
DX: M54.16 Radiculopathy, lumbar region (principal)
CPT/HCPCS: 72148

== ENCOUNTER → 2023-12-23 | Outpatient (CLI) | payer MEDICARE, SELFPAY ==
[2023-12-23 11:21] LABS: Absolute Lymphocyte Count 3.42 X10^3/uL (0.83-4.51); Absolute Neutrophil Count 2.9 X10^3/uL (2.0-7.7); Basophil# 0.06 X10^3/uL; Basophil% 0.8 % (0-1); Eosinophil# 0.29 X10^3/uL; Hematocrit 44.6 % (37-47); Hemoglobin 14.6 g/dL (12.0-15.0); Lymphocyte # 3.42 X10^3/ul (0.83-4.51); Lymphocyte % 47.2 % (19-41); Mean Corp Hgb Conc 32.7 g/dL (32-36); Mean Corpuscular Hgb 32.2 pg (27.0-32.0); Mean Corpuscular Volume 98.2 fL (81-99); Mean Platelet Vol. 10.4 fl (6.2-12.0); Monocyte# 0.53 X10^3/uL; Monocyte% 7.3 % (0-10); NRBC Flagged by Analyzer 0 % (0-5); Neutrophil # 2.93 X10^3/uL (2.7-7.7); Neutrophil % 40.4 % (47-70); Platelet Count 245 K/mm3 (150-450); RBC Distribution Width CV 12.5 % (11.6-14.6); RBC Distribution Width SD 45.3 fl (35.1-43.9); Red Blood Count 4.54 M/mm3 (4.2-5.4); White Blood Count 7.3 K/mm3 (4.4-11.0)
[2023-12-23 11:47] LABS: Vitamin D,25 Hydroxy 30.8 ng/mL
[2023-12-23 13:02] LABS: AST(SGOT) 17 U/L (15-37); Alanine Aminotransfer ALT/SGPT 33 U/L (13-56); Alkaline Phosphatase 54 U/L (45-117); Anion Gap 3 (5-15); BUN 13 mg/dL (7-18); BUN/Creat Ratio 16.5 RATIO (10-20); Calcium,Total 9.6 mg/dL (8.5-10.1); Chloride 108 mmol/L (98-107); Creatinine, Serum 0.79 mg/dL (0.55-1.02); EST Glomerular Filtration Rate 77 mL/min (>60); Est Glom Filt Rate - Afr Amer 93 mL/min (>60); Globulin 3.9 g/dL (2.2-4.2); Glucose 103 mg/dL (74-106); Potassium 3.9 mmol/L (3.5-5.1); Protein, Total 7.9 g/dL (6.4-8.2); Sodium Level 136 mmol/L (136-145)
== END | disposition home or self-care (01) ==
LOC: POLAB3 10:23
PROVIDERS: PCP Family Medicine Geriatric Medicine; Visit Provider Family Medicine Geriatric Medicine
DX: E55.9 Vitamin D deficiency, unspecified (principal); R53.83 Other fatigue
CPT/HCPCS: 36415; 80053; 82306; 84443; 85025

== ENCOUNTER 2024-01-18 12:00 | Outpatient (RCR) | payer MEDICARE, SELFPAY ==
--- NOTE | 2023-12-15 11:28 | HP.PTEVAL_ITS ---
Patient's Visit Information Visit Information Visit Information: GORDON NAYLOR is a 73 year old F referred to Physical Therapy by Dr. Jan Rosen MD with a diagnosis of Lumbar radiculaopthy. Date of Evaluation: 12/15/23 Physical Therapist: Eleuterio Rivera, DPT, OCS, CSCS Visit Plan Frequency: 3x /Week Duration: 4-6 Weeks Plan: 3x/week for 4-6 weeks.. start with STM to LB and PA mobs grade 1 lumbar and gentle aarom low back and R knee, TENS and MH in prone to end. work to knee and core strength as pain improves. Consider pool if not improving. pt will get MRI results soon of LB. Subjective Subjective: Pain in r LB and leg to knee. Been there since New years and could not finish shift. No reason for injury. 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 Still hurts knee and to second toe. Pain also goes up into R LB and hip. H/o bone graft adn fusion 2004 and 2017, x rays show fusion is good but two vertebraes above are painful. Had MRI done yesterday. Will get results soon. Sleep is not great, it keeps her up alot at night, cannot get comfortable. Trying pillow alignment. Gave gabapentin and it helps a little. Off work since this happened. Sitting alot at home , when healthy enjoys doing stuff around the house. Unable to do them now. Basic ADLS are OK and getting done. Hurts more to be on feet but it can vary. Walking in stores is limited to 30 minutes before back screams. Pain R LB and leg: Pain Intensity (Out of 10): 8 Pain Intensity Range: 3 and 10 Objective Objective: Walks with R antalgia into PT I, slow to get out of chair and stand up tall. hard to straighten R knee . I trasnfers bed and chair but slow and careful in LB. Good balance. LB AROM max limited in ext and flexion due to LBP. SB are min limited and not painful. + slump and + SLR R. HS R painful vs L AROM L knee full and R knee is painful end range ext and flexion with OP. + bounce home, - ant drawewr, - post sag. AROM ankles WFL. reflexes 2/3 patella and achilles Sensation LE WNL to gross light touch B. strength is 3+ hips, 4- knees and 4 ankles without myhotomal abnormalities. Tenderness in lumbar paraspinals to mild palpation. PA pressure also painful lumbar area. Balance/Special Test Scores Oswestry Low Back Score: 31 Goals Goal 1:: walk and transfer without evidence of pain Goal Time Frame: 4-6 Weeks Goal 2:: full LB and knee R ROM without hesitation Goal Time Frame: 4-6 Weeks Goal 3:: Pain 1/10 at worst in LB and 90% better Goal Time Frame: 4-6 Weeks Goal 4:: I appropriate HEP to minimize future problems Goal Time Frame: 4-6 Weeks Goal 5:: Back oswestry 5 or better adn plan to return to work Goal Time Frame: 4-6 Weeks Rehabilitation Potential Physical Therapy Diagnosis: R leg pain and back pain limiting funciton and work. Rehabilitation Potential: Fair Anticipated Interventions Patient/Client Instruction: Educate patient on: Condition and Plan of Care For the Purpose of:: To decrease pain, To decrease swelling/inflammation, To increase ROM, To improve nutrient delivery to tissue and To improve muscle performance and motor function Therapeutic Exercise to Include: Strength training, Postural training, Flexibilty training, In an aquatic setting, Passive ROM and Active ROM For the Purpose of:: To decrease pain, To increase ROM, To improve nutrient delivery to tissue, To increase oxygenation perfusion, To improve muscle performance and motor function, To increase tolerance to activity/condition/position and To improve gait and locomotor functions Manual Therapy Techniques to Include: Mobilization, Passive ROM and Soft tissue mobilization For the Purpose of:: To decrease pain, To decrease swelling/inflammation, To increase ROM and To improve nutrient delivery to tissue TENS: Yes Thermo therapy (hot pack): Yes For the Purpose of:: To decrease pain and To decrease swelling/inflammation Text: Thank you for the opportunity to evaluate your patient. For Medicare and Medicare HMO plans, please review the plan of care and approve it. It will need to be FAXED BACK to us at [phone] for Medicare purposes. For Medicare only, by signing this I certify the plan of care. Please let me know if there are questions or concerns regarding this plan of care. Physician Signature: Date:
--- NOTE | 2024-01-05 11:39 | HP.PTREVAL ---
Re-Evaluation Intro: Dr. Jan Rosen MD, It has been my pleasure to treat GORDON NAYLOR over the last 7 visits for Lumbar radiculaopthy. Please see the progress note below for an update on the physical therapy plan of care! Subjective Subjective: Hurting today LB and knee. Cleaned out car for an hour yesterday and that may be why. Injection really helped for 5 days then getting worse in the leg again. This week is 06/08, back is 06/08 This is a bad day for her back. Doing leg stretches and back ROM at home and has started some strengthening. has been up and down over the last 3 weeks. Not noticing a big pattern to her pain. Sleep is better. Just wants to feel better. To pain management in February. Objective Objective/Function: LB ext mod limited and painful centrally, flexion is slow and pulls in back of R leg, SB L painful and limited mod, R not bad today. Limping on R each step with intermittent sudden increase in pain sitting and walking and on steps. requires rail for safety on step. + bounce home and end range flexion r knee today. presents more with knee involvement possibly mensicus today and keep this in consideration as she progresses. - SLR and slump today but LB still painful. trial pool appropriate due to lack of consistent progression with current ex regimen and modalities. Doctor plan is PT adn pain management then surgery. Plan Plan Plan: 2x/week pool therapy for core and R LE strength adn back ROM and progression of home core and knee strength ex. recheck EG end for exit strategy based on condition. Balance/Gait/Functional tests Balance/Special Test Scores Oswestry Low Back Score: 18 Goals Goals Goal 1:: walk and transfer without evidence of pain Goal Time Frame: 4-6 Weeks Goal Progress: limps still Goal 2:: full LB and knee R ROM without hesitation Goal Time Frame: 4-6 Weeks Goal Progress: Not Progressing Goal 3:: Pain 1/10 at worst in LB and 90% better Goal Time Frame: 4-6 Weeks Goal Progress: slow and up and down. Goal 4:: I appropriate HEP to minimize future problems Goal Time Frame: 4-6 Weeks Goal Progress: Progressing Goal 5:: Back oswestry 5 or better adn plan to return to work Goal Time Frame: 4-6 Weeks Goal Progress: Not Progressing Anticipated Interventions Anticipated Interventions Patient/Client Instruction: Educate patient on: Condition and Plan of Care For the Purpose of:: To decrease pain, To decrease swelling/inflammation, To increase ROM, To improve nutrient delivery to tissue and To improve muscle performance and motor function Therapeutic Exercise to Include: Strength training, Postural training, Flexibilty training, In an aquatic setting, Passive ROM and Active ROM For the Purpose of:: To decrease pain, To increase ROM, To improve nutrient delivery to tissue, To increase oxygenation perfusion, To improve muscle performance and motor function, To increase tolerance to activity/condition/position and To improve gait and locomotor functions Manual Therapy Techniques to Include: Mobilization, Passive ROM and Soft tissue mobilization For the Purpose of:: To decrease pain, To decrease swelling/inflammation, To increase ROM and To improve nutrient delivery to tissue TENS: Yes Thermo therapy (hot pack): Yes For the Purpose of:: To decrease pain and To decrease swelling/inflammation Re-Evaluation Ending Re-evaluation ending: Please do not hesitate to contact me at [phone] by phone or if you have questions or concerns regarding this new plan of care! Sincerely, Eleuterio Rivera, DPT, OCS, CSCS
--- NOTE | 2024-03-08 15:14 | HP.PT.NRP ---
Patient Information Patient Information: GORDON NAYLOR was seen in my office for initial evaluation on 12/15/23. The following Plan of Care was established for this patient: POC Established Initial Frequency: 3x /Week Initial Duration: 4-6 Weeks Anticipated Interventions Patient/Client Instruction: Educate patient on: Condition and Plan of Care For the Purpose of:: To decrease pain, To decrease swelling/inflammation, To increase ROM, To improve nutrient delivery to tissue and To improve muscle performance and motor function Therapeutic Exercise to Include: Strength training, Postural training, Flexibilty training, In an aquatic setting, Passive ROM and Active ROM For the Purpose of:: To decrease pain, To increase ROM, To improve nutrient delivery to tissue, To increase oxygenation perfusion, To improve muscle performance and motor function, To increase tolerance to activity/condition/position and To improve gait and locomotor functions Manual Therapy Techniques to Include: Mobilization, Passive ROM and Soft tissue mobilization For the Purpose of:: To decrease pain, To decrease swelling/inflammation, To increase ROM and To improve nutrient delivery to tissue TENS: Yes Thermo therapy (hot pack): Yes For the Purpose of:: To decrease pain and To decrease swelling/inflammation Last Seen Last Seen: This patient was last seen in our office 01/18/24. Pertinent comments regarding their Physical therapy will appear below: Pt seen 11 visits of POC but did not schedule or attend any further visits. At this point, it has been over 6 weeks and I will discontinue due to nonattendance. At this point I will be discontinuing this patient from physical therapy. I would be happy to see this patient again in the future if found appropriate by the physician. Thank you! Eleuterio Rivera, DPT, OCS, CSCS Balance/Gait/Functional tests Balance/Special Test Scores Oswestry Low Back Score: 18
== END 2024-01-18 19:00 | disposition home or self-care (01) ==
LOC: PT 12:00
PROVIDERS: PCP Family Medicine Geriatric Medicine; Referring Provider Orthopaedic Surgery Sports Medicine; Visit Provider Orthopaedic Surgery Sports Medicine
DX: M54.16 Radiculopathy, lumbar region (principal)
CPT/HCPCS: 97014; 97110; 97113; 97140; 97162; 97530; G0283

== ENCOUNTER → 2024-02-05 | Outpatient (CLI) | payer MEDICARE, SELFPAY ==
[2024-02-05 11:01] LABS: T4 Free Direct 1.34 ng/dL (0.76-1.46); Thyroid Stim Hormone (TSH) 0.02 uIU/mL (0.358-3.74)
== END | disposition home or self-care (01) ==
PROVIDERS: PCP Family Medicine Geriatric Medicine; Visit Provider Family Medicine Geriatric Medicine
DX: E03.9 Hypothyroidism, unspecified (principal)
CPT/HCPCS: 36415; 84439; 84443; 84481

== ENCOUNTER → 2024-05-18 | Outpatient (CLI) | payer MEDICARE, SELFPAY ==
[2024-05-18 17:41] LABS: Amphetamine Urine VISTA NEGATIVE (<1000 ng/mL); Barbiturate Urine VISTA NEGATIVE (< 200 ng/mL); Benzodiazepine Urine VISTA NEGATIVE (< 200 ng/mL); Cocaine Urine VISTA NEGATIVE (< 300 ng/mL); Ecstacy Urine VISTA NEGATIVE (< 500 ng/mL); Methadone Urine VISTA NEGATIVE (< 300 ng/mL); PCP Urine VISTA NEGATIVE (< 25 ng/mL); THC Urine VISTA NEGATIVE (< 50 ng/mL); Vista UDS pH Range 5
== END | disposition home or self-care (01) ==
LOC: LAB 16:10
PROVIDERS: PCP Family Medicine Geriatric Medicine; Referring Provider Anesthesiology Pain Medicine; Visit Provider Anesthesiology Pain Medicine
DX: F11.20 Opioid dependence, uncomplicated (principal)
CPT/HCPCS: 80307

== ENCOUNTER → 2024-06-07 | Outpatient (CLI) | payer MEDICARE, SELFPAY ==
--- NOTE | 2024-06-07 16:59 | CT_ITS ---
STUDY: CT LUMBAR SPINE WITHOUT CONTRAST REASON FOR EXAM: Female, 73 years old. LUMBAR PAIN, S/P LUMBAR FUSION, DDD RADIATION DOSAGE (If Supplied By Facility): CTDIvol = ( 13.15 ) mGy, DLP = ( 368.98 ) mGycm TECHNIQUE: The patient was scanned in a multi detector CT scanner. High resolution transaxial imaging was performed. Images were obtained from L1 to S1 vertebral level. Sagittal and coronal images were reconstructed. Individualized dose optimization techniques were used for this CT. COMPARISON: None FINDINGS: Normal lumbar lordosis. There is no substantial scoliosis. Prior fusion at the L4-L5 and prosthetic disc placement. L1-2: Moderate degree of bone disc space narrowing. Spondylosis. No evidence of spinal stenosis. Mild degree of facet joint osteoarthritis and hypertrophy. L2-3: Moderate degree of disc space narrowing. Spondylosis. Facet joint osteoarthritis and hypertrophy. Mild degree of bilateral neural foraminal stenosis. L3-4: Mild degree of disc space narrowing. Facet joint osteoarthritis and hypertrophy. Mild degree of diffuse posterior disc bulge. Moderate degree of bilateral neural foraminal stenosis slightly worse on the left side. Mild degree of central canal stenosis. L4-5: Status post interpedicular screw fixation. Prosthetic disc in place. Facet joint osteoarthritis and hypertrophy. Mild degree of left neural foraminal stenosis. L5-S1: Moderate degree of disc space narrowing. Facet joint osteoarthritis and hypertrophy. Atherosclerosis of the abdominal aorta. CT/Spine Lumbar without Contrast IMPRESSION: Status post posterior spinal fusion at the L4-L5 level. Mild degree of multilevel spondylosis and neural foraminal stenosis. Electronically Signed: Taz Parra MD at 10:15 EDT ,
== END | disposition home or self-care (01) ==
LOC: CT 16:58
PROVIDERS: PCP Family Medicine Geriatric Medicine
DX: M54.50 Low back pain, unspecified (principal); M51.36 Other intervertebral disc degeneration, lumbar region
CPT/HCPCS: 72131

== ENCOUNTER → 2024-06-13 | Outpatient (CLI) | payer MEDICARE, SELFPAY ==
--- NOTE | 2024-06-13 13:15 | MRI_ITS ---
STUDY: MRI LUMBAR SPINE WITHOUT CONTRAST REASON FOR EXAM: Female, 73 years old. LUMBAR PAIN; S/P LUMBAR FUSION, LUMBAR DEGENERATIVE DISC DISEASE TECHNIQUE: Standardized fat and water weighted pulse sequences were obtained in the sagittal and axial planes. Noncontrast images obtained. Contrast: No contrast administered COMPARISON: 10/14/2024 FINDINGS: Vertebral bodies and alignment. 1. Vertebral body height and alignment are maintained. No evidence of marrow edema or occult fracture. 2. Postoperative changes of pedicle screw posterior fixation at L4-5 with additional interbody fusion. An intervertebral disc spacer present at L5-S1. 3. Paraspinous soft tissue planes have normal appearance. Normal appearance of the muscular fascial planes of the erector spinae. 4. Normal appearance of the sacrum and sacroiliac joints. Intervertebral disks levels. T12-L1: Disc space narrowing without evidence of disc herniation or canal stenosis. There is a broad-based disc bulge and osteophyte. Facet hypertrophic changes are present. Endplate: Modic type II minimal fatty marrow changes present. L1-2: Disc desiccation, broad-based posterior disc bulge with mild deformity anterior epidural space without evidence of canal stenosis or foraminal narrowing. No nerve root impingement. Facet hypertrophic changes are present. Endplate: Minimal endplate Modic type II marrow changes. L2-3: Disc desiccation, small Schmorl''s node involving the inferior endplate of L2. Minimal disc bulge and osteophyte, no evidence of disc herniation canal or foraminal stenosis. Facet hypertrophic changes are present. Endplate: Deformity the inferior endplate of L2, no evidence of jayro Modic changes or marrow edema. L3-4: Normal disc bulge without disc herniation or canal stenosis. Facet
== END | disposition home or self-care (01) ==
PROVIDERS: PCP Family Medicine Geriatric Medicine
DX: M54.50 Low back pain, unspecified (principal); M51.36 Other intervertebral disc degeneration, lumbar region; Z98.1 Arthrodesis status
CPT/HCPCS: 72148

== ENCOUNTER → 2024-06-14 | Outpatient (CLI) | payer MEDICARE, SELFPAY ==
--- NOTE | 2024-06-14 11:22 | NEURO ---
NCS and/or EMG Patient Report Ordering Doctor: Lesly Ruiz DATE OF SERVICE: 06/14/24 Clinical Summary: 73 year old female patient with symptoms of pain that radiate down from her back down the side of the right leg to the foot. Nerve Conduction Studies Summary: Nerve conduction studies in the right lower extremity were within normal ranges. Needle Examination Summary: Needle examination of select muscles of the right lower extremity demonstrated a higher proportion of motor unit action potentials with reduced recruitment, increased amplitude, increased duration, and polyphasia in the right tensor fascia telma and tibialis anterior muscles. Impression: There is electrodiagnostic evidence of a mild, chronic, right L5 radiculopathy. Multi Select Codes Neurology Neurology Interp Codes: 84305-45 Musc test done w/n test comp (interp) (1) and 50576-55 Nrv cndj tst 3-4 studies (interp)
== END | disposition home or self-care (01) ==
PROVIDERS: PCP Family Medicine Geriatric Medicine
DX: Z98.1 Arthrodesis status (principal); R20.0 Anesthesia of skin; R20.2 Paresthesia of skin
CPT/HCPCS: 95886; 95908

== ENCOUNTER → 2024-06-20 | Outpatient (CLI) | payer MEDICARE, SELFPAY ==
[2024-06-20 12:33] LABS: Basophil# 0.06 X10^3/uL; Basophil% 0.8 % (0-1); Eosinophil# 0.32 X10^3/uL; Eosinophils% 4.2 % (0-5); Hematocrit 46.1 % (37-47); Hemoglobin 15.3 g/dL (12.0-15.0); Lymphocyte % 46.1 % (19-41); Mean Corp Hgb Conc 33.2 g/dL (32-36); Mean Corpuscular Hgb 31.5 pg (27.0-32.0); Mean Corpuscular Volume 94.9 fL (81-99); Mean Platelet Vol. 10.9 fl (6.2-12.0); Monocyte# 0.66 X10^3/uL; Monocyte% 8.7 % (0-10); NRBC Flagged by Analyzer 0 % (0-5); Neutrophil # 3.03 X10^3/uL (2.7-7.7); Neutrophil % 39.9 % (47-70); Platelet Count 252 K/mm3 (150-450); RBC Distribution Width CV 12.2 % (11.6-14.6); RBC Distribution Width SD 42.3 fl (35.1-43.9); Red Blood Count 4.86 M/mm3 (4.2-5.4); White Blood Count 7.6 K/mm3 (4.4-11.0)
[2024-06-20 12:57] LABS: Vitamin D,25 Hydroxy 23.6 ng/mL
[2024-06-20 13:12] LABS: ALB/GLOB Ratio 0.9 RATIO (0.9-2.4); AST(SGOT) 17 U/L (15-37); Alanine Aminotransfer ALT/SGPT 17 U/L (13-56); Albumin, Serum 3.9 g/dL (3.2-5.0); Alkaline Phosphatase 65 U/L (45-117); Anion Gap 4 (5-15); BUN 12 mg/dL (7-18); BUN/Creat Ratio 18.3 RATIO (10-20); Calcium,Total 9.5 mg/dL (8.5-10.1); Chloride 107 mmol/L (98-107); Creatinine, Serum 0.65 mg/dL (0.55-1.02); EST Glomerular Filtration Rate 95 mL/min (>60); Est Glom Filt Rate - Afr Amer 115 mL/min (>60); Globulin 4.3 g/dL (2.2-4.2); Glucose 92 mg/dL (74-106); Protein, Total 8.2 g/dL (6.4-8.2); Sodium Level 137 mmol/L (136-145); Thyroid Stim Hormone (TSH) 0.02 uIU/mL (0.358-3.74)
== END | disposition home or self-care (01) ==
LOC: POLAB3 11:04
PROVIDERS: PCP Family Medicine Geriatric Medicine; Visit Provider Family Medicine Geriatric Medicine
DX: R53.83 Other fatigue (principal); E55.9 Vitamin D deficiency, unspecified
CPT/HCPCS: 36415; 80053; 82306; 84443; 85025

== ENCOUNTER → 2024-07-06 | Outpatient (CLI) | payer MEDICARE, SELFPAY ==
--- NOTE | 2024-07-06 14:28 | BI_ITS ---
MAMMOGRAPHY - BILATERAL SCREENING 3-D TOMOSYNTHESIS REASON FOR EXAM: Female, 73 years old. SCREENING PERTINENT HISTORY: No significant family history. TECHNIQUE: 2-D mammograms and 3-D Tomosynthesis of the breast (s) were performed. CAD was performed. COMPARISON: None. FINDINGS: The breast composition is composed of scattered fibroglandular density. Scattered benign calcifications are seen. No dense spiculated masses or suspicious microcalcifications are identified. No architectural distortion is identified. There is no skin thickening or retraction. There has been no significant change since the prior study. BI/SCRN MAMM (CAD)W/CALIXTO BILAT IMPRESSION: No mammographic signs of malignancy. Routine yearly mammograms recommended. ASSESSMENT CATEGORY: BIRADS Category 1: Negative. A letter regarding these results will be sent to the patient by the facility within 30 days. FOLLOW UP RECOMMENDATION: Yearly follow up mammogram recommended. (A) Approximately 10% of breast cancers are not detected by mammography. A normal mammogram should not delay biopsy of a clinically suspicious abnormality. Electronically Signed: Olvin Mora MD at 14:04 EDT ,
--- NOTE | 2024-07-06 14:28 | BD_ITS ---
STUDY: DUAL ENERGY X-RAY ABSORPTIOMETRY / DXA REASON FOR EXAM: Female, 73 years old. [id number] TECHNIQUE: Bone Mineral Density (BMD) measurements of lumbar spine and bilateral hips were obtained. COMPARISON: None. FINDINGS: Lumbar Spine (L1-L4): g/cm2 (1.294) / T-score (2.5) / Z-score (4.7) Findings are suggestive of normal bone density with a low fracture risk. Left Femur Total: g/cm2 (1.035) / T-score (0.8) / Z-score (2.4) Left Femoral Neck: g/cm2 (0.672) / T-score (-1.6) / Z-score (0.3) Right Femur Total: g/cm2 (1.001) / T-score (0.5) / Z-score (2.1) Right Femoral Neck: g/cm2 (0.739) / T-score (-1.0) / Z-score (0.9) BD/Dexa Bone Density Study IMPRESSION: The patient is considered osteopenic as outlined below according to World Rodriguez Organization (WHO) criteria with a moderate fracture risk. Reference Information: The T-score is the number of standard deviations above or below the standard which is normal for young adults at their peak bone mineral density. The World Health Organization (WHO) interprets the T-scores as follows: Above -1 Normal bone density Between -1 and -2.5 Osteopenia Equal to / or below -2.5 Osteoporosis As a practical clinical guideline, osteopenia may be graded as follows: Mild -1 through -1.5 Moderate -1.6 through -2.0 Severe -2.1 through -2.4 The Z-score is the number of standard deviations above or below age-matched controls. A Z-score of less than -1.5 would be considered abnormal. References: 1. NIH Osteoporosis and Related Bone Diseases www osteo.org 2. International Society for Clinical Densitometry www iscd.org 3. National Osteoporosis Foundation www nof.org Electronically Signed: Taz Parra MD at 12:01 EDT ,
== END | disposition home or self-care (01) ==
LOC: OPBD 14:27
PROVIDERS: PCP Family Medicine Geriatric Medicine; Referring Provider Family Medicine Geriatric Medicine; Visit Provider Family Medicine Geriatric Medicine
DX: Z12.31 Encounter for screening mammogram for malignant neoplasm of breast (principal); Z78.0 Asymptomatic menopausal state
CPT/HCPCS: 77063; 77067; 77080

== ENCOUNTER → 2024-07-22 | Outpatient (CLI) | payer MEDICARE, SELFPAY ==
[2024-07-22 11:32] LABS: T4 Free Direct 1.43 ng/dL (0.76-1.46)
[2024-07-25 17:07] LABS: Anti-Thyroglobulin AB < 1.0 IU/mL (0.0-0.9); Thyroglobulin, Serum Qt. < 0.1 ng/mL (1.5-38.5)
== END | disposition home or self-care (01) ==
LOC: LAB 10:12
PROVIDERS: PCP Family Medicine Geriatric Medicine; Referring Provider Internal Medicine Endocrinology, Diabetes & Metabolism; Visit Provider Internal Medicine Endocrinology, Diabetes & Metabolism
DX: E89.0 Postprocedural hypothyroidism (principal); C73 Malignant neoplasm of thyroid gland
CPT/HCPCS: 36415; 84432; 84439; 84443; 86800

== ENCOUNTER → 2024-10-18 | Outpatient (CLI) | payer MEDICARE, SELFPAY ==
[2024-10-18 15:50] LABS: T4 Free Direct 0.95 ng/dL (0.76-1.46); Thyroid Stim Hormone (TSH) 0.484 uIU/mL (0.358-3.740)
== END | disposition home or self-care (01) ==
LOC: LAB 14:23
PROVIDERS: PCP Family Medicine Geriatric Medicine; Referring Provider Internal Medicine Endocrinology, Diabetes & Metabolism; Visit Provider Internal Medicine Endocrinology, Diabetes & Metabolism
DX: E89.0 Postprocedural hypothyroidism (principal)
CPT/HCPCS: 36415; 84439; 84443

== ENCOUNTER → 2025-01-20 | Outpatient (CLI) | payer MEDICARE, SELFPAY ==
[2025-01-20 10:12] LABS: Absolute Lymphocyte Count 3.34 X10^3/uL (0.83-4.51); Absolute Neutrophil Count 2.8 X10^3/uL (2.0-7.7); Basophil# 0.04 X10^3/uL; Basophil% 0.6 % (0-1); Eosinophils% 2.9 % (0-5); Hematocrit 45.7 % (37-47); Hemoglobin 15.2 g/dL (12.0-15.0); Lymphocyte # 3.34 X10^3/ul (0.83-4.51); Lymphocyte % 48.2 % (19-41); Mean Corp Hgb Conc 33.3 g/dL (32-36); Mean Corpuscular Volume 96.2 fL (81-99); Mean Platelet Vol. 10.1 fl (6.2-12.0); Monocyte# 0.53 X10^3/uL; Monocyte% 7.6 % (0-10); NRBC Flagged by Analyzer 0 % (0-5); Neutrophil # 2.81 X10^3/uL (2.7-7.7); Neutrophil % 40.6 % (47-70); Platelet Count 263 K/mm3 (150-450); RBC Distribution Width CV 12.3 % (11.6-14.6); RBC Distribution Width SD 43.8 fl (35.1-43.9); Red Blood Count 4.75 M/mm3 (4.2-5.4); White Blood Count 6.9 K/mm3 (4.4-11.0)
[2025-01-20 13:22] LABS: ALB/GLOB Ratio 0.9 RATIO (0.9-2.4); AST(SGOT) 19 U/L (15-37); Alanine Aminotransfer ALT/SGPT 19 U/L (13-56); Albumin, Serum 3.7 g/dL (3.2-5.0); Alkaline Phosphatase 65 U/L (45-117); Anion Gap 4 (5-15); BUN 8 mg/dL (7-18); BUN/Creat Ratio 11.7 RATIO (10-20); Calcium,Total 9.3 mg/dL (8.5-10.1); Chloride 107 mmol/L (98-107); Cholesterol 311 mg/dL (200); Creatinine, Serum 0.68 mg/dL (0.55-1.02); EST Glomerular Filtration Rate 90 mL/min (>60); Est Glom Filt Rate - Afr Amer 109 mL/min (>60); Glucose 97 mg/dL (74-106); High Density Lipoprotein 66 mg/dL; Protein, Total 7.7 g/dL (6.4-8.2); Sodium Level 138 mmol/L (136-145); T4 Free Direct 0.97 ng/dL (0.76-1.46); Triglycerides 165 mg/dL; Very Low Density Lipoprotein 33 mg/dL (5-40)
== END | disposition home or self-care (01) ==
LOC: MTLAB 09:25
PROVIDERS: PCP Nurse Practitioner Family; Referring Provider Nurse Practitioner Family; Visit Provider Nurse Practitioner Family
DX: Z00.00 Encounter for general adult medical examination without abnormal findings (principal); E03.9 Hypothyroidism, unspecified
CPT/HCPCS: 36415; 80053; 80061; 84439; 84443; 84481; 85025